=== PATIENT | male | born 1945 | race Caucasian/White ===

== ENCOUNTER 2016-11-07 09:06 | Emergency (ER) | payer MEDICARE, OTHER, BC ==
[~2016-11-07] VITALS: Ht 182.9 cm; Wt 93.2 kg
[2016-11-07 09:09] VITALS: TEMP 97.7
[2016-11-07] MEDS ORDERED: ALLEGRA 60MG TA60 MG PO (10:04)
[2016-11-07] MEDS ORDERED: VITAMIN D 400400 IU PO (10:22)
[2016-11-07] MEDS ORDERED: B COMPLEX #11 TA1 PO (10:23)
[2016-11-07] MEDS ORDERED: RT SPIRIVA18 MCG IH (10:23)
[2016-11-07] MEDS ORDERED: PRESERVISIONLUT (10:24)
[2016-11-07 11:14] LABS: ADJUSTED CALCIUM 9.6 mg/dL (8.4-10.2); ALBUMIN 3.5 gm/dL (3.5-5.0); BILIRUBIN,TOTAL 0.6 mg/dL (0.0-1.0); CALCIUM 9.2 mg/dL (8.4-10.2); POTASSIUM 4.6 mmol/L (3.4-5.0); TOTAL PROTEIN 6.3 gm/dL (6.4-8.2)
[2016-11-07 11:18] LABS: BASO # 0.1 (0.0-0.2); BASO % 1.3 % (0.0-2.0); EOS # 0.4 (0.0-0.7); GRAN # 5.5 (1.4-6.5); GRAN % 63.8 % (42.2-75.2); HEMATOCRIT 39.9 % (42.0-52.0); HEMOGLOBIN 13.3 g/dl (13.5-18.0); LYMPH % 23.2 % (20.0-51.0); MEAN CELL VOLUME 91 fl (80.0-100.0); MEAN CORPUSCULAR HEMOGLOBIN 30 pg (27.0-31.0); MEAN CORPUSCULAR HGB CONC 33 g/dl (33.0-37.0); MEAN PLATELET VOLUME 9.9 fl (7.4-10.4); MONO # 0.6 (0.1-0.6); MONO % 6.5 % (1.7-9.3); PLATELET COUNT 295 K/mm3 (130-400); RED BLOOD COUNT 4.38 M/mm3 (4.20-5.60); REDCELL DISTRIBUTION WIDTH-CV 14.5 % (11.5-14.5); WHITE BLOOD COUNT 8.6 K/mm3 (4.8-10.8)
[2016-11-07 11:44] LABS: PH 7 (5-8); SQUAMOUS EPITHELIAL None Seen /hpf; URINE APPEARANCE Hazy; URINE BACTERIA Rare /hpf; URINE BILIRUBIN Negative (NEGATIVE); URINE BLOOD Negative (NEGATIVE); URINE COLOR Yellow; URINE GLUCOSE Negative (NEGATIVE); URINE KETONE Negative (NEGATIVE); URINE UROBILINOGEN Negative (NEGATIVE); URINE WBC 0-2 /hpf
[2016-11-07 12:34] VITALS: BP 107/60; PULSE 59
== END 2016-11-07 12:57 | disposition short-term general hospital (02) ==
LOC: COL.ER 09:06
PROVIDERS: Family Medicine
DX: T14.8 Other injury of unspecified body region (principal); S09.90XA Unspecified injury of head, initial encounter; S29.9XXA Unspecified injury of thorax, initial encounter; S19.9XXA Unspecified injury of neck, initial encounter; J44.9 Chronic obstructive pulmonary disease, unspecified; Z87.891 Personal history of nicotine dependence; W18.09XA Striking against other object with subsequent fall, initial encounter; R40.2362 Coma scale, best motor response, obeys commands, at arrival to emergency department; R40.2142 Coma scale, eyes open, spontaneous, at arrival to emergency department; R40.2252 Coma scale, best verbal response, oriented, at arrival to emergency department
CPT/HCPCS: J2930; J7030; J7060; Q9967

== ENCOUNTER 2017-08-05 13:15 | Outpatient (RCR) | payer MEDICARE, OTHER, BC ==
[~2017-08-05 13:15] MED LIST: ALLEGRA 60MG TA60 MG PO; B COMPLEX #11 TA1 PO; PRESERVISIONLUT; RT SPIRIVA18 MCG IH; VITAMIN D 400400 IU PO
== END 2017-08-09 | disposition home or self-care (01) ==
LOC: WSOT
DX: S14.106D Unspecified injury at C6 level of cervical spinal cord, subsequent encounter (principal); G82.50 Quadriplegia, unspecified; W01.0XXD Fall on same level from slipping, tripping and stumbling without subsequent striking against object, subsequent encounter; Y92.007 Garden or yard of unspecified non-institutional (private) residence as the place of occurrence of the external cause
CPT/HCPCS: G8978-GP; G8979-GP; G8987-GO; G8988-GO

== ENCOUNTER 2017-08-08 12:30 | Outpatient (RCR) | payer OTHER, MEDICARE, BC | END 2017-08-09 | LOC: WSPT | DX: G82.50 Quadriplegia, unspecified (principal) | CPT/HCPCS: G8978-GP; G8979-GP ==

== ENCOUNTER → 2017-09-06 | Outpatient (CLI) | payer MEDICARE, OTHER, BC ==
[~2017-09-06] MED LIST changes: +AFLIBERCEPT IJ; +ALBUTEROL S0.4 MG/ML PO; +ASPIRIN E.C. 8181 MG PO; +DOXYCYCLINE 10100 MG PO; +DULCOLAX S10 MG/SUPP RC; +FLONASE SENSIM9.9 ML NS; +LEXAPRO 10MG10 MG PO; +LIORESAL 1010 MG/TAB PO; +LIPITOR 40MG TA40 MG PO; +MUCUS RELIEF400 M1 PO; +MULTI VITAMINS1 TAB PO; +NEURONTIN300 MG/CAP PO; +NORCO 325 MG-51 TAB PO; +NYAMYC100000 U/G TP; +PLAVIX 75MG TAB75 MG PO; +SPIRIVA RE2.5 MCG/Ac IH; +TYLENOL 325MG325 MG PO; +VITAMIN C500 MG PO; +VITAMIN D31000 I1 PO; +ZYRTEC 10MG10 MG PO; +[UNRECOGNIZED DRUG - OTHER] SL
== END ==
LOC: COL.VAS 12:15
DX: I34.0 Nonrheumatic mitral (valve) insufficiency (principal); I35.0 Nonrheumatic aortic (valve) stenosis

== ENCOUNTER → 2017-09-08 | Outpatient (CLI) | payer MEDICARE, OTHER, BC | LOC: COL.PUL 09-07 11:20 | DX: J44.9 Chronic obstructive pulmonary disease, unspecified (principal); R93.8 Abnormal findings on diagnostic imaging of other specified body structures ==

== ENCOUNTER → 2017-09-13 | Outpatient (CLI) | payer MEDICARE, OTHER, BC | LOC: COL.PUL 08:00 | DX: J44.9 Chronic obstructive pulmonary disease, unspecified (principal) ==

== ENCOUNTER 2017-11-07 13:00 | Outpatient (RCR) | payer OTHER, MEDICARE, BC ==
[2017-11-09] MEDS ORDERED: RT SPIRIVA18 MCG IH (12:33)
== END 2017-11-08 ==
LOC: WSOT
DX: G82.50 Quadriplegia, unspecified (principal)
CPT/HCPCS: G8987-GO; G8988-GO

== ENCOUNTER 2017-11-07 14:00 | Outpatient (RCR) | payer OTHER, MEDICARE, BC ==
[2017-11-09] MEDS ORDERED: RT SPIRIVA18 MCG IH (12:33)
== END 2017-11-08 ==
LOC: WSPT
DX: G82.50 Quadriplegia, unspecified (principal); S14.101D Unspecified injury at C1 level of cervical spinal cord, subsequent encounter
CPT/HCPCS: G8978-GP; G8979-GP

== ENCOUNTER → 2017-11-14 | Outpatient (CLI) | payer MEDICARE, BC ==
[2017-11-14 10:54] VITALS: BP 105/60; PULSE 51
[2017-11-14 12:09] VITALS: BP 110/58; PULSE 77
[2017-11-14 12:11] VITALS: BP 108/56; PULSE 67
[2017-11-14 12:12] VITALS: BP 108/63; PULSE 60
[2017-11-14 12:13] VITALS: BP 123/70; PULSE 62
== END ==
LOC: COL.CARD 11-08 07:45
DX: I21.4 Non-ST elevation (NSTEMI) myocardial infarction (principal)
CPT/HCPCS: A9502; J2785

== ENCOUNTER → 2017-12-22 | Outpatient (CLI) | payer MEDICARE, BC ==
[~2017-12-22] VITALS: Ht 182.9 cm; Wt 99.1 kg
[~2017-12-22] MED LIST changes: +ALBUTEROL0.83 MG/ML IH; +LIPITOR 80MG80 MG PO; +MUCINEX 60600 MG/TA1 PO; +PREDNISONE10 MG PO; +PROAIR HFA0.09 MG/AC IH; +RT ADVAIR HFA 412 GM IH; +ZANAFLEX 4MG TAB4 MG PO; +ZANAFLEX2 MG PO; +ZITHROMAX 250M250 MG PO
[2017-12-22 13:43] VITALS: BP 113/65; PULSE 43
[2017-12-22 15:45] VITALS: BP 127/69; PULSE 50
== END ==
LOC: COL.RAD 13:20
DX: K11.8 Other diseases of salivary glands (principal); Z89.029 Acquired absence of unspecified finger(s); Z96.698 Presence of other orthopedic joint implants

== ENCOUNTER 2018-01-10 12:15 | Emergency (ER) | payer MEDICARE, OTHER, BC ==
[~2018-01-10] VITALS: Ht 182.9 cm; Wt 100.0 kg
[2018-01-10 12:19] VITALS: TEMP 98.5
[2018-01-10 12:54] LABS: COLLECTION METHOD CLEAN CATCH
[2018-01-10 12:59] LABS: BASO # 0.1 (0.0-0.2); BASO % 0.5 % (0.0-2.0); EOS # 0.2 (0.0-0.7); EOS % 1.6 % (0-4.0); GRAN # 7.9 (1.4-6.5); GRAN % 71.1 % (42.2-75.2); HEMATOCRIT 42.7 % (42.0-52.0); HEMOGLOBIN 14.3 g/dl (13.5-18.0); LYMPH # 2.2 (1.2-3.4); LYMPH % 19.9 % (20.0-51.0); MEAN CELL VOLUME 91 fl (80.0-100.0); MEAN CORPUSCULAR HEMOGLOBIN 30 pg (27.0-31.0); MEAN CORPUSCULAR HGB CONC 34 g/dl (33.0-37.0); MEAN PLATELET VOLUME 8.1 fl (7.4-10.4); MONO # 0.7 (0.1-0.6); MONO % 6.5 % (1.7-9.3); PLATELET COUNT 240 K/mm3 (130-400); RED BLOOD COUNT 4.71 M/mm3 (4.20-5.60); REDCELL DISTRIBUTION WIDTH-CV 13.8 % (11.5-14.5)
[2018-01-10 13:03] LABS: BUDDING YEAST Present /hpf; MUCOUS Present /lpf; PH 7 (5-8); SQUAMOUS EPITHELIAL 0-2 /hpf; URINE APPEARANCE Hazy; URINE BACTERIA None Seen /hpf; URINE BILIRUBIN Negative (NEGATIVE); URINE BLOOD Negative (NEGATIVE); URINE COLOR Yellow; URINE GLUCOSE Negative (NEGATIVE); URINE KETONE Negative (NEGATIVE); URINE LEUKOCYTE ESTERASE Negative (NEGATIVE); URINE NITRATE Negative (NEGATIVE); URINE PROTEIN(semi-quant) Negative (NEGATIVE); URINE RBC 0-2 /hpf; URINE UROBILINOGEN Negative (NEGATIVE)
[2018-01-10] MEDS ORDERED: PRESERVISION1 SGL PO (13:03)
[2018-01-10] MEDS ORDERED: CRANBERRY500 M3 PO (13:06)
[2018-01-10 13:13] LABS: ALBUMIN 3.7 gm/dL (3.5-5.0); BILIRUBIN,TOTAL 0.3 mg/dL (0.0-1.0); CALCIUM 9.3 mg/dL (8.4-10.2); CREATININE, serum 0.63 mg/dL (0.66-1.25); POTASSIUM 4.4 mmol/L (3.4-5.0); TOTAL PROTEIN 7.2 gm/dL (6.4-8.2)
[2018-01-10 14:21] VITALS: BP 129/68; PULSE 54
== END 2018-01-10 14:22 | disposition home or self-care (01) ==
LOC: COL.ER 12:15
PROVIDERS: Emergency Medicine
DX: R53.81 Other malaise (principal); G82.50 Quadriplegia, unspecified; Z79.82 Long term (current) use of aspirin; Z87.828 Personal history of other (healed) physical injury and trauma
CPT/HCPCS: J7030

== ENCOUNTER 2018-01-13 13:15 | Outpatient (RCR) | payer MEDICARE, OTHER, BC ==
[~2018-01-13 13:15] MED LIST changes: +CRANBERRY500 M3 PO; +PRESERVISION1 SGL PO
== END 2018-02-26 | disposition home or self-care (01) ==
LOC: WSOT
DX: G82.54 Quadriplegia, C5-C7 incomplete (principal)
CPT/HCPCS: G8985-GO; G8987-GO; G8988-GO

== ENCOUNTER 2018-02-08 14:00 | Outpatient (RCR) | payer MEDICARE, OTHER, BC | END 2018-02-09 | disposition home or self-care (01) | LOC: WSPT | DX: S14.101D Unspecified injury at C1 level of cervical spinal cord, subsequent encounter (principal); G82.50 Quadriplegia, unspecified | CPT/HCPCS: G8978-GP; G8979-GP ==

== ENCOUNTER 2018-03-14 08:35 | Day surgery (SDC) | payer MEDICARE, OTHER, BC ==
[~2018-03-14] VITALS: Ht 182.9 cm; Wt 99.1 kg
[2018-03-14 09:36] VITALS: BP 99/49; PULSE 47; TEMP 97.6
== END 2018-03-14 10:39 | disposition home or self-care (01) ==
LOC: SDCO 08:35
DX: N21.0 Calculus in bladder (principal); N31.9 Neuromuscular dysfunction of bladder, unspecified; J43.9 Emphysema, unspecified; Z79.82 Long term (current) use of aspirin; Z87.891 Personal history of nicotine dependence; Z80.3 Family history of malignant neoplasm of breast; Z83.3 Family history of diabetes mellitus; Z82.49 Family history of ischemic heart disease and other diseases of the circulatory system; Z80.42 Family history of malignant neoplasm of prostate; Z80.0 Family history of malignant neoplasm of digestive organs

== ENCOUNTER 2018-05-10 13:45 | Outpatient (RCR) | payer MEDICARE, OTHER, BC | END 2018-05-11 | disposition home or self-care (01) | LOC: WSPT | DX: S14.101D Unspecified injury at C1 level of cervical spinal cord, subsequent encounter (principal); G82.50 Quadriplegia, unspecified | CPT/HCPCS: G8978-GP; G8979-GP ==

== ENCOUNTER 2018-05-16 14:52 | Day surgery (SDC) | payer MEDICARE, OTHER, BC ==
[~2018-05-16] VITALS: Ht 182.9 cm; Wt 100.0 kg
[2018-05-16 15:40] VITALS: BP 115/54; PULSE 48; TEMP 98
[2018-05-16] MEDS ORDERED: MUCINEX 60600 MG/TA1 PO (15:51)
[2018-05-16 18:54] VITALS: BP 154/67; PULSE 74; TEMP 97.7
[2018-05-16 19:24] VITALS: BP 147/77; PULSE 73
[2018-05-16 19:54] VITALS: BP 130/51; PULSE 84; TEMP 97.9
== END 2018-05-16 20:30 | disposition home or self-care (01) ==
LOC: SDCO 14:52 → MEDICAL 19:00 → SDCO 20:30
DX: N21.0 Calculus in bladder (principal); N39.0 Urinary tract infection, site not specified; Z79.02 Long term (current) use of antithrombotics/antiplatelets; K21.9 Gastro-esophageal reflux disease without esophagitis; F32.9 Major depressive disorder, single episode, unspecified; G82.54 Quadriplegia, C5-C7 incomplete; M17.12 Unilateral primary osteoarthritis, left knee; Z87.891 Personal history of nicotine dependence; Z80.0 Family history of malignant neoplasm of digestive organs; Z80.42 Family history of malignant neoplasm of prostate; Z79.899 Other long term (current) drug therapy; C34.91 Malignant neoplasm of unspecified part of right bronchus or lung; H35.30 Unspecified macular degeneration; J43.9 Emphysema, unspecified; N31.9 Neuromuscular dysfunction of bladder, unspecified; Z87.440 Personal history of urinary (tract) infections; D49.0 Neoplasm of unspecified behavior of digestive system; Z79.82 Long term (current) use of aspirin
CPT/HCPCS: OP; C1769; J0690; J1100; J2405; J2704; J7120

== ENCOUNTER → 2018-06-07 | Outpatient (RCR) | payer MEDICARE, OTHER, BC | END | disposition home or self-care (01) | LOC: WSOT | DX: G82.50 Quadriplegia, unspecified (principal); S14.101D Unspecified injury at C1 level of cervical spinal cord, subsequent encounter | CPT/HCPCS: G8987-GO; G8988-GO ==

== ENCOUNTER 2018-06-16 02:06 | Inpatient (IN) | payer MEDICARE, OTHER, BC ==
[~2018-06-16] VITALS: Ht 182.9 cm; Wt 102.4 kg
[2018-06-16 02:36] LABS: COLLECTION METHOD CATHETER
[2018-06-16 02:41] LABS: MUCOUS Present /lpf; PH 5 (5-8); SQUAMOUS EPITHELIAL None Seen /hpf; URINE APPEARANCE Clear; URINE BACTERIA None Seen /hpf; URINE BILIRUBIN Negative (NEGATIVE); URINE BLOOD Negative (NEGATIVE); URINE COLOR Straw; URINE GLUCOSE Negative (NEGATIVE); URINE KETONE Negative (NEGATIVE); URINE LEUKOCYTE ESTERASE Negative (NEGATIVE); URINE NITRATE Negative (NEGATIVE); URINE PROTEIN(semi-quant) Negative (NEGATIVE); URINE RBC None Seen /hpf; URINE UROBILINOGEN Negative (NEGATIVE)
[2018-06-16 02:50] LABS: BASO # 0.1 (0.0-0.2); BASO % 0.6 % (0.0-2.0); EOS # 0.3 (0.0-0.7); EOS % 1.8 % (0-4.0); GRAN # 11.1 (1.4-6.5); GRAN % 74.3 % (42.2-75.2); HEMOGLOBIN 13.2 g/dl (13.5-18.0); LYMPH # 2.4 (1.2-3.4); LYMPH % 16.1 % (20.0-51.0); MEAN CELL VOLUME 90 fl (80.0-100.0); MEAN CORPUSCULAR HEMOGLOBIN 30 pg (27.0-31.0); MEAN CORPUSCULAR HGB CONC 33 g/dl (33.0-37.0); MEAN PLATELET VOLUME 8.5 fl (7.4-10.4); MONO % 6.7 % (1.7-9.3); PLATELET COUNT 269 K/mm3 (130-400); RED BLOOD COUNT 4.44 M/mm3 (4.20-5.60)
[2018-06-16 02:56] LABS: INR 1.1 (0.8-3.0); PROTHROMBIN TIME 12.4 SECONDS (9.7-12.8)
[2018-06-16] MEDS ORDERED: RT ADVAIR HFA 2312 G IH (02:56)
[2018-06-16] MEDS ORDERED: DULCOLAX S10 MG/SUPP RC (02:58)
[2018-06-16 02:59] LABS: PARTIAL THROMBOPLASTIN TIME 29.6 SECONDS (26.0-37.0)
[2018-06-16 03:01] LABS: ALBUMIN 3.8 gm/dL (3.5-5.0); BILIRUBIN,TOTAL 0.4 mg/dL (0.0-1.0); CALCIUM 9.2 mg/dL (8.4-10.2); CREATININE, serum 0.6 mg/dL (0.66-1.25); POTASSIUM 4.4 mmol/L (3.4-5.0); TOTAL PROTEIN 6.8 gm/dL (6.4-8.2)
[2018-06-16] MEDS ORDERED: MUCINEX 60600 MG/TA1 PO (03:02)
[2018-06-16 03:14] LABS: TROPONIN-I 0.013 ng/mL (0.000-0.034)
[2018-06-16 09:36] VITALS: BP 104/59; PULSE 97; TEMP 97.9
[2018-06-16 11:52] VITALS: BP 107/56; PULSE 83; TEMP 97.9
[2018-06-16 15:26] VITALS: BP 108/52; PULSE 89; TEMP 96.4
[2018-06-16 19:08] VITALS: BP 116/54; PULSE 72; TEMP 98.5
[2018-06-16 23:58] VITALS: BP 134/63; PULSE 89; TEMP 97.9
[2018-06-17 04:01] VITALS: BP 125/56; PULSE 77; TEMP 97.8
[2018-06-17 06:08] LABS: BASO % 0.1 % (0.0-2.0); GRAN # 11.9 (1.4-6.5); GRAN % 89.7 % (42.2-75.2); HEMATOCRIT 38.1 % (42.0-52.0); HEMOGLOBIN 12.4 g/dl (13.5-18.0); LYMPH # 0.9 (1.2-3.4); LYMPH % 6.5 % (20.0-51.0); MEAN CELL VOLUME 91 fl (80.0-100.0); MEAN CORPUSCULAR HEMOGLOBIN 30 pg (27.0-31.0); MEAN CORPUSCULAR HGB CONC 33 g/dl (33.0-37.0); MEAN PLATELET VOLUME 8.7 fl (7.4-10.4); MONO # 0.4 (0.1-0.6); MONO % 3.2 % (1.7-9.3); PLATELET COUNT 265 K/mm3 (130-400); RED BLOOD COUNT 4.18 M/mm3 (4.20-5.60); REDCELL DISTRIBUTION WIDTH-CV 13.2 % (11.5-14.5)
[2018-06-17 06:26] LABS: CALCIUM 8.8 mg/dL (8.4-10.2); CREATININE, serum 0.53 mg/dL (0.66-1.25); POTASSIUM 4.4 mmol/L (3.4-5.0)
[2018-06-17 08:01] VITALS: BP 138/71; PULSE 76; TEMP 97.5
[2018-06-17 11:31] VITALS: BP 108/56; PULSE 66; TEMP 97.5
[2018-06-17 15:47] VITALS: BP 116/59; PULSE 60; TEMP 97.5
[2018-06-17 19:44] VITALS: BP 135/63; PULSE 74; TEMP 97.9
[2018-06-18 00:24] VITALS: BP 138/52; PULSE 80; TEMP 97.3
[2018-06-18 04:25] VITALS: BP 146/64; PULSE 78
[2018-06-18 07:38] LABS: CALCIUM 8.9 mg/dL (8.4-10.2); CREATININE, serum 0.49 mg/dL (0.66-1.25); POTASSIUM 4.5 mmol/L (3.4-5.0)
[2018-06-18 08:27] LABS: HEMATOCRIT 38.6 % (42.0-52.0); HEMOGLOBIN 12.7 g/dl (13.5-18.0); MEAN CELL VOLUME 91 fl (80.0-100.0); MEAN CORPUSCULAR HEMOGLOBIN 30 pg (27.0-31.0); MEAN CORPUSCULAR HGB CONC 33 g/dl (33.0-37.0); PLATELET COUNT 242 K/mm3 (130-400); RED BLOOD COUNT 4.24 M/mm3 (4.20-5.60); REDCELL DISTRIBUTION WIDTH-CV 13.2 % (11.5-14.5)
[2018-06-18 08:50] LABS: BAND 4 % (0-10); LYMPHOCYTE 3 % (20.0-51.0); NEUTROPHILS 92 % (42.0-75.2); PLATELET ESTIMATE NORMAL (NORMAL)
[2018-06-18 11:03] VITALS: BP 143/62; PULSE 87; TEMP 98.3
[2018-06-18] MEDS ORDERED: OMNICEF 300MG300 MG PO (13:26)
[2018-06-18] MEDS ORDERED: ZITHROMAX 250M250 MG PO ×2 (13:27→13:35)
[2018-06-18] MEDS ORDERED: PREDNISONE20 MG PO (13:28)
[2018-06-21 17:41] LABS: MYCOPLASMA IGM ANTIBODIES 0.3 (0.00-0.90)
== END 2018-06-18 15:30 | disposition home or self-care (01) | DRG 193 ==
LOC: COL.ER 02:06 → MEDICAL 05:46
PROVIDERS: Emergency Medicine; Hospitalist; Physician Assistant
DX: J18.9 Pneumonia, unspecified organism (principal); G82.50 Quadriplegia, unspecified; I21.A1 Myocardial infarction type 2; J44.1 Chronic obstructive pulmonary disease with (acute) exacerbation; K59.2 Neurogenic bowel, not elsewhere classified; J44.0 Chronic obstructive pulmonary disease with (acute) lower respiratory infection; N31.9 Neuromuscular dysfunction of bladder, unspecified; G62.9 Polyneuropathy, unspecified; S14.109S Unspecified injury at unspecified level of cervical spinal cord, sequela; R74.8 Abnormal levels of other serum enzymes; R07.89 Other chest pain; G47.30 Sleep apnea, unspecified; R91.1 Solitary pulmonary nodule; F32.9 Major depressive disorder, single episode, unspecified; R53.81 Other malaise; I25.2 Old myocardial infarction; H35.30 Unspecified macular degeneration; Z87.891 Personal history of nicotine dependence; Z66 Do not resuscitate
CPT/HCPCS: 99223-AI; 99233-AI; 99239; J0456; J0696; J1650; J2930; J7030; J7040; J7050; Q9967

== ENCOUNTER 2018-08-09 14:00 | Outpatient (RCR) | payer MEDICARE, OTHER, BC ==
[~2018-08-09 14:00] MED LIST changes: +OMNICEF 300MG300 MG PO; +PREDNISONE20 MG PO; +RT ADVAIR HFA 2312 G IH
== END 2018-08-10 | disposition home or self-care (01) ==
LOC: WSPT
DX: S14.101D Unspecified injury at C1 level of cervical spinal cord, subsequent encounter (principal); G82.50 Quadriplegia, unspecified
CPT/HCPCS: G8978-GP; G8979-GP

== ENCOUNTER → 2018-09-06 | Outpatient (CLI) | payer MEDICARE, OTHER, BC | LOC: COL.RAD 11:00 | DX: M47.816 Spondylosis without myelopathy or radiculopathy, lumbar region (principal); R19.7 Diarrhea, unspecified ==

== ENCOUNTER 2018-09-11 12:45 | Outpatient (RCR) | payer MEDICARE, OTHER, BC ==
[2018-09-27] MEDS ORDERED: ZANAFLEX CAPSULE4 MG PO (22:08)
[2018-09-27] MEDS ORDERED: PROAIR HFA0.09 MG/AC IH (22:22)
[2018-09-27] MEDS ORDERED: BUSPAR5 MG (22:22)
[2018-09-27] MEDS ORDERED: TYLENOL 500MG500 MG PO (22:23)
[2018-09-27] MEDS ORDERED: FLONASEALLERGY NS (22:24)
[2018-09-28] MEDS ORDERED: MUCUS RELIEF400 M1 PO (03:46)
[2018-09-28] MEDS ORDERED: PROBIOTIC FORMU1 CAP PO (03:48)
[2018-09-28] MEDS ORDERED: MULTIPLE VITAMI1 CAP PO (03:48)
[2018-09-28] MEDS ORDERED: LIORESAL 1010 MG/TAB PO (03:49)
[2018-09-28] MEDS ORDERED: WELLBUTRIN SR150 M1 PO (12:54)
[2018-10-01] MEDS ORDERED: PREDNISONE20 MG PO (15:00)
[2018-10-01] MEDS ORDERED: AMOXICILLIN 8751 TAB PO (15:00)
== END 2018-10-22 | disposition still patient (30) ==
LOC: WSOT
DX: G82.54 Quadriplegia, C5-C7 incomplete (principal)
CPT/HCPCS: G8987-GO; G8988-GO

== ENCOUNTER 2018-09-15 13:45 | Outpatient (RCR) | payer MEDICARE, BC ==
[2018-09-27] MEDS ORDERED: ZANAFLEX CAPSULE4 MG PO (22:08)
[2018-09-27] MEDS ORDERED: BUSPAR5 MG (22:22)
[2018-09-27] MEDS ORDERED: PROAIR HFA0.09 MG/AC IH (22:22)
[2018-09-27] MEDS ORDERED: TYLENOL 500MG500 MG PO (22:23)
[2018-09-27] MEDS ORDERED: FLONASEALLERGY NS (22:24)
[2018-09-28] MEDS ORDERED: MUCUS RELIEF400 M1 PO (03:46)
[2018-09-28] MEDS ORDERED: MULTIPLE VITAMI1 CAP PO (03:48)
[2018-09-28] MEDS ORDERED: PROBIOTIC FORMU1 CAP PO (03:48)
[2018-09-28] MEDS ORDERED: LIORESAL 1010 MG/TAB PO (03:49)
[2018-09-28] MEDS ORDERED: WELLBUTRIN SR150 M1 PO (12:54)
[2018-10-01] MEDS ORDERED: AMOXICILLIN 8751 TAB PO (15:00)
[2018-10-01] MEDS ORDERED: PREDNISONE20 MG PO (15:00)
[2018-10-26] MEDS ORDERED: PREDNISONE10 MG PO (16:28)
== END 2018-11-09 | disposition home or self-care (01) ==
LOC: WSPT
DX: S14.101D Unspecified injury at C1 level of cervical spinal cord, subsequent encounter (principal); G82.50 Quadriplegia, unspecified

== ENCOUNTER 2018-10-26 12:54 | Emergency (ER) | payer OTHER ==
[~2018-10-26] VITALS: Ht 182.9 cm; Wt 98.6 kg
[~2018-10-26 12:54] MED LIST changes: +AMOXICILLIN 8751 TAB PO; +BUSPAR5 MG; +FLONASEALLERGY NS; +MULTIPLE VITAMI1 CAP PO; +PROBIOTIC FORMU1 CAP PO; +TYLENOL 500MG500 MG PO; +WELLBUTRIN SR150 M1 PO; +ZANAFLEX CAPSULE4 MG PO
[2018-10-26 14:30] LABS: COLLECTION METHOD CATHETER
[2018-10-26 14:35] LABS: PH 7 (5-8); SQUAMOUS EPITHELIAL None Seen /hpf; URINE APPEARANCE Clear; URINE BACTERIA None Seen /hpf; URINE BILIRUBIN Negative (NEGATIVE); URINE BLOOD Negative (NEGATIVE); URINE COLOR Yellow; URINE GLUCOSE Negative (NEGATIVE); URINE KETONE Negative (NEGATIVE); URINE LEUKOCYTE ESTERASE Negative (NEGATIVE); URINE NITRATE Negative (NEGATIVE); URINE PROTEIN(semi-quant) Negative (NEGATIVE); URINE RBC 0-2 /hpf; URINE UROBILINOGEN Negative (NEGATIVE)
[2018-10-26 14:56] LABS: BASO # 0.1 (0.0-0.2); BASO % 0.8 % (0.0-2.0); EOS # 0.1 (0.0-0.7); EOS % 1.6 % (0-4.0); GRAN # 6.2 (1.4-6.5); HEMATOCRIT 40.3 % (42.0-52.0); HEMOGLOBIN 12.9 g/dl (13.5-18.0); LYMPH # 1.6 (1.2-3.4); LYMPH % 18.5 % (20.0-51.0); MEAN CELL VOLUME 91 fl (80.0-100.0); MEAN CORPUSCULAR HEMOGLOBIN 29 pg (27.0-31.0); MEAN CORPUSCULAR HGB CONC 32 g/dl (33.0-37.0); MEAN PLATELET VOLUME 8.9 fl (7.4-10.4); MONO # 0.6 (0.1-0.6); MONO % 6.9 % (1.7-9.3); PLATELET COUNT 242 K/mm3 (130-400); RED BLOOD COUNT 4.42 M/mm3 (4.20-5.60); REDCELL DISTRIBUTION WIDTH-CV 13.9 % (11.5-14.5)
[2018-10-26 15:08] LABS: ALBUMIN 3.6 gm/dL (3.5-5.0); BILIRUBIN,TOTAL 0.4 mg/dL (0.0-1.0); CALCIUM 9.2 mg/dL (8.4-10.2); CREATININE, serum 0.67 (0.66-1.25); POTASSIUM 4.4 mmol/L (3.4-5.0); TOTAL PROTEIN 6.8 gm/dL (6.4-8.2)
[2018-10-26 15:29] VITALS: TEMP 97.5
[2018-10-26] MEDS ORDERED: PREDNISONE10 MG PO (16:28)
[2018-10-26 16:35] VITALS: BP 118/71; PULSE 72
== END 2018-10-26 16:35 | disposition home or self-care (01) ==
LOC: COL.ER 12:54
PROVIDERS: Family Medicine
DX: J44.1 Chronic obstructive pulmonary disease with (acute) exacerbation (principal); J20.9 Acute bronchitis, unspecified; J44.0 Chronic obstructive pulmonary disease with (acute) lower respiratory infection; Z86.73 Personal history of transient ischemic attack (TIA), and cerebral infarction without residual deficits; Z79.51 Long term (current) use of inhaled steroids
CPT/HCPCS: J7512

== ENCOUNTER 2018-11-02 14:13 | Outpatient (RCR) | payer MEDICARE, OTHER, BC | END 2019-01-31 | disposition still patient (30) | LOC: WSST | DX: J69.0 Pneumonitis due to inhalation of food and vomit (principal) ==

== ENCOUNTER → 2018-11-07 | Outpatient (RCR) | payer OTHER | END | disposition home or self-care (01) | LOC: WSOT | DX: G82.52 Quadriplegia, C1-C4 incomplete (principal) ==

== ENCOUNTER → 2018-11-14 | Outpatient (RCR) | payer OTHER | END | disposition home or self-care (01) | LOC: WSPT | DX: S14.106D Unspecified injury at C6 level of cervical spinal cord, subsequent encounter (principal); G82.50 Quadriplegia, unspecified; W18.09XD Striking against other object with subsequent fall, subsequent encounter ==

== ENCOUNTER → 2018-11-16 | Outpatient (CLI) | payer MEDICARE, OTHER, BC | LOC: COL.RAD 15:02 | DX: J69.0 Pneumonitis due to inhalation of food and vomit (principal) ==

== ENCOUNTER 2019-02-12 12:45 | Outpatient (RCR) | payer OTHER ==
[2019-02-18] MEDS ORDERED: PROAIR HFA0.09 MG/AC IH (05:42)
[2019-02-18] MEDS ORDERED: ZANAFLEX2 MG PO ×2 (05:45→05:46)
[2019-02-19] MEDS ORDERED: WELLBUTRIN XL300 M1 PO (10:23)
== END 2019-02-19 | disposition home or self-care (01) ==
LOC: WSOT
DX: G82.52 Quadriplegia, C1-C4 incomplete (principal)

== ENCOUNTER 2019-02-12 13:30 | Outpatient (RCR) | payer OTHER | END 2019-02-15 | disposition home or self-care (01) | LOC: WSPT | DX: G82.52 Quadriplegia, C1-C4 incomplete (principal) ==

== ENCOUNTER 2019-02-18 00:41 | Inpatient (IN) | payer MEDICARE, BC ==
[2019-02-18] VITALS (358 sets, daily range): BP systolic 10–108; BP diastolic 35–57; PULSE 82–109; TEMP 98.3–98.9; O2SAT 86–97
[~2019-02-18] VITALS: Ht 182.9 cm; Wt 103.3 kg
[2019-02-18 01:06] LABS: BASO # 0.1 (0.0-0.2); BASO % 0.4 % (0.0-2.0); EOS # 0.1 (0.0-0.7); EOS % 0.6 % (0-4.0); GRAN # 15.3 (1.4-6.5); GRAN % 84.2 % (42.2-75.2); HEMATOCRIT 44.9 % (42.0-52.0); HEMOGLOBIN 14.5 g/dl (13.5-18.0); LYMPH # 1.5 (1.2-3.4); LYMPH % 8.3 % (20.0-51.0); MEAN CELL VOLUME 90 fl (80.0-100.0); MEAN CORPUSCULAR HEMOGLOBIN 29 pg (27.0-31.0); MEAN CORPUSCULAR HGB CONC 32 g/dl (33.0-37.0); MEAN PLATELET VOLUME 8.7 fl (7.4-10.4); MONO % 5.4 % (1.7-9.3); PLATELET COUNT 311 K/mm3 (130-400); RED BLOOD COUNT 4.99 M/mm3 (4.20-5.60); REDCELL DISTRIBUTION WIDTH-CV 13.9 % (11.5-14.5)
[2019-02-18 01:10] LABS: PROTHROMBIN TIME 11.6 SECONDS (9.7-12.8)
[2019-02-18 01:14] LABS: ALANINE AMINOTRANSFERASE 17 U/L (21-72); ALBUMIN 4.3 gm/dL (3.5-5.0); ALKALINE PHOSPHATASE 87 U/L (50-136); ANION GAP 10 mmol/L (7-16); AST,SGOT 27 U/L (15-37); BILIRUBIN,TOTAL 0.4 mg/dL (0.0-1.0); BLOOD UREA NITROGEN 15 mg/dL (9-20); CALCIUM 9.7 mg/dL (8.4-10.2); CARBON DIOXIDE 28 mmol/L (22-30); CHLORIDE 98 mmol/L (98-107); GLUCOSE 134 mg/dL (74-106); POTASSIUM 4.7 mmol/L (3.4-5.0); SODIUM 136 mmol/L (137-145); TOTAL PROTEIN 7.7 gm/dL (6.4-8.2)
[2019-02-18 01:26] LABS: TROPONIN-I < 0.012 ng/mL (0.000-0.035)
[2019-02-18 01:46] LABS: COLLECTION METHOD CATHETER
[2019-02-18 01:52] LABS: MUCOUS Present /lpf; PH 5 (5-8); SQUAMOUS EPITHELIAL 0-2 /hpf; URINE APPEARANCE Clear; URINE BACTERIA None Seen /hpf; URINE BILIRUBIN Negative (NEGATIVE); URINE BLOOD Negative (NEGATIVE); URINE COLOR Yellow; URINE GLUCOSE Negative (NEGATIVE); URINE KETONE Negative (NEGATIVE); URINE LEUKOCYTE ESTERASE Negative (NEGATIVE); URINE NITRATE Negative (NEGATIVE); URINE PROTEIN(semi-quant) Negative (NEGATIVE); URINE UROBILINOGEN Negative (NEGATIVE)
--- NOTE | 2019-02-18 05:03 | NUR ---
Received telephone report from LISA Rios.
--- NOTE | 2019-02-18 05:12 | NUR ---
Arrived to the unit via stretcher; attached to all monitors. Patient alert, cooperative, and partially oriented. Some mild confusion noted with basic questions regarding date and time. No complaints of pain or shortness of breath at this time. Will continue to moniotr.
[2019-02-18] MEDS ORDERED: PROAIR HFA0.09 MG/AC IH (05:42)
[2019-02-18] MEDS ORDERED: ZANAFLEX2 MG PO ×2 (05:45→05:46)
[2019-02-18 06:58] LABS: ARTERIAL BLD GAS O2 SATURATION 93.7 % (92-100); ARTERIAL BLD GAS TCO2 CT 29.9; ARTERIAL BLOOD GAS BASE EXCESS 1.9 (-2-2); ARTERIAL BLOOD GAS HCO3 28.3 meq/L (22-26); ARTERIAL BLOOD GAS PCO2 51.6 mmHg (35-45); ARTERIAL BLOOD GAS PO2 75.3 mmHg (80-100); ARTERIAL BLOOD GAS pH 7.36 (7.35-7.45)
--- NOTE | 2019-02-18 07:45 | NUR ---
Report recieved from LISA Alvarado. Patient in bed in low and locked position, call light within reach, rails x3. MIVF infusing as ordered. Patient denies needs at this time. Care assumed.
--- NOTE | 2019-02-18 07:45 | NUR ---
Report given to LISA Escamilla. Patient care transfered.
--- NOTE | 2019-02-18 10:00 | NUR ---
Dr. Rashid rounds at this time. Orders as entered CPOE.
--- NOTE | 2019-02-18 10:40 | NUR ---
Dr. Moreno rounds at this time. Orders as entered CPOE.
[2019-02-18 15:49] LABS: ARTERIAL BLD GAS O2 SATURATION 86.8 % (92-100); ARTERIAL BLD GAS TCO2 CT 23.7; ARTERIAL BLOOD GAS BASE EXCESS -3.6 (-2-2); ARTERIAL BLOOD GAS HCO3 22.3 meq/L (22-26); ARTERIAL BLOOD GAS PCO2 43.9 mmHg (35-45); ARTERIAL BLOOD GAS PO2 57.1 mmHg (80-100); ARTERIAL BLOOD GAS pH 7.32 (7.35-7.45)
--- NOTE | 2019-02-18 16:05 | NUR ---
Foam tape used to create large handled silverware for patient for improved dexterity. Patient uses this to eat most of meal and requires assistance with drinks. Care ongoing.
--- NOTE | 2019-02-18 18:46 | NUR ---
PT IS NOT TOLERATING THE BIPAP VERY WELL, WHILE OXYGEN SAT STAYS IN THE LOW 90'S WITH THE REGULAR OXYGEN. CALLED DR. NOLAN FERNÁNDEZ TO REQUEST TO HAVE THIS PT TO USE THE AIRVO AND SEE IF THE PT CAN TOLERATE THIS BETTER AND TO KEEP HIS SAT UP. WILL CONTINUE TO MONITOR AND ASSESS PT NEEDED THROUGHOUT THE NIGHT
--- NOTE | 2019-02-18 19:25 | NUR ---
Bedside report received from LISA Escamilla
--- NOTE | 2019-02-18 20:00 | NUR ---
Patient asleep in bed at this time, but awakens to name and tactile stimulation. Patient is alert and partially oriented, some confusion in conversation. Assessment complete. Lungs are clear in the upper lobes with bilateral bases being diminished with fine crackles. HR and rhythm are regular with normal S1 and S2 heard. Bowel sounds are active x4. Patient has +2 edema to his lower extremities. He has no complaints of pain. Repositioned for comfort. No further needs at this time. Will continue to monitor. Call light within reach.
--- NOTE | 2019-02-18 22:40 | NUR ---
Patient has started to desaturate on the Airvo machine as he is breathing through his mouth rather than his nose when he sleeps. Notified RT Mitch
--- NOTE | 2019-02-18 22:44 | NUR ---
PT WAS BREATHING THROUGH HIS MOUTH TOO MUCH TO WHERE HIS 02 SAT WAS DROPPING IN THE MID 80'S SWITCHED PT BACK TO OM AND INCREASE LPM TO 15 AND TITRATED IT DOWN HIS SATURATION WENT UP. HE IS CURRENTLY AT 10 LPM WITH THE OM AND HE IS RAFA WELL WITH HIS O2 SAT AT 94%. WILL CONTINUE TO MONITOR AND ASSESS
[2019-02-19] VITALS (404 sets, daily range): BP systolic 102–140; BP diastolic 53–73; PULSE 75–97; TEMP 97–98.3; O2SAT 88–100
--- NOTE | 2019-02-19 | NUR ---
Patient asleep. Awakens to name. No complaints of pain or needs at this time. Repositioned for comfort. Will continue to monitor. Call light within reach.
--- NOTE | 2019-02-19 04:00 | NUR ---
Patient asleep. Awakens to name. No complaints of pain. Vitals are stable. No needs at this time. Will continue to monitor. Call light within reach.
[2019-02-19 05:14] LABS: MEAN CELL VOLUME 92 fl (80.0-100.0); MEAN CORPUSCULAR HGB CONC 32 g/dl (33.0-37.0); MEAN PLATELET VOLUME 8.8 fl (7.4-10.4); PLATELET COUNT 236 K/mm3 (130-400); RED BLOOD COUNT 3.81 M/mm3 (4.20-5.60); REDCELL DISTRIBUTION WIDTH-CV 14.3 % (11.5-14.5)
[2019-02-19 05:20] LABS: HEMATOCRIT 35.2 % (42.0-52.0); HEMOGLOBIN 11.3 g/dl (13.5-18.0); MEAN CORPUSCULAR HEMOGLOBIN 30 pg (27.0-31.0)
[2019-02-19 05:27] LABS: ALBUMIN 3.1 gm/dL (3.5-5.0); BILIRUBIN,TOTAL 0.3 mg/dL (0.0-1.0); CALCIUM 8.5 mg/dL (8.4-10.2); CREATININE, serum 0.67 (0.66-1.25); MAGNESIUM 2.2 mg/dL (1.6-2.3); POTASSIUM 4.5 mmol/L (3.4-5.0); TOTAL PROTEIN 5.9 gm/dL (6.4-8.2)
[2019-02-19 06:01] LABS: BAND 19 % (0-10); LYMPHOCYTE 6 % (20.0-51.0); NEUTROPHILS 74 % (42.0-75.2); PLATELET ESTIMATE NORMAL (NORMAL)
--- NOTE | 2019-02-19 07:30 | NUR ---
BEDSIDE REPORT RECEIVED FROM LISA RUANO. PATIENT AWAKE AND PARTICIPATES IN REPORT. HE IS REPOSITIONED AT THIS TIME. CALL LIGHT WITHIN REACH. CARE ASSUMED AT THIS TIME.
--- NOTE | 2019-02-19 08:01 | NUR ---
Bedside report given to LISA Melara
[2019-02-19 09:11] LABS: ARTERIAL BLD GAS O2 SATURATION 94.5 % (92-100); ARTERIAL BLD GAS TCO2 CT 25.7; ARTERIAL BLOOD GAS BASE EXCESS -1.5 (-2-2); ARTERIAL BLOOD GAS HCO3 24.3 meq/L (22-26); ARTERIAL BLOOD GAS PCO2 45.6 mmHg (35-45); ARTERIAL BLOOD GAS PO2 74.2 mmHg (80-100); ARTERIAL BLOOD GAS pH 7.35 (7.35-7.45)
[2019-02-19] MEDS ORDERED: WELLBUTRIN XL300 M1 PO (10:23)
--- NOTE | 2019-02-19 11:33 | NUR ---
Dr. Rashid here to see patient
--- NOTE | 2019-02-19 14:20 | NUR ---
ZOYA attended clinical rounds. The patient is to be transferred up to the medical floor today. The hospitalist discussed the need for a trilogy. ZOYA then followed up with the patient and patient's , Diana, to discuss discharge plan. The patient lives in [place] his . The patient is a quadriplegic and reports needing assistance with ADLS and that he has a wheelchair, motor wheelchair, a laya lift, ramps, shower chair, and nocturnal oxygen from [facility]. The patient's reports that she is able to assist the patient with ADLs and that the patient also has home health services through the [facility]. They provide therapy twice a week, a bath aide three times a week, and help with housekeeping. ZOYA attempted to contact the patient's social services technician at the [facility] (ph#[phone]) to confirm services. ZOYA left a voicemail. The patient's PCP at the [facility] is Tami Gama and his PCP in [place] is Dr. Stanley Henderson. The patient receives his medications at the [facility] and his reports no difficulties obtaining his meds. The patient's General DPOA is in EMR. ZOYA informed the patient's . The patient's reports that the patient does have a DPOA-HC completed and that she is his DPOA-HC. The patient's reports that she will bring a copy to the hospital. The patient plans to return home with his and resume home health services through the [facility] upon discharge. ZOYA then discussed the patient's need for a trilogy and DME companies. The patient's reports that the patient gets his oxygen from [facility] and she chose to receive the trilogy from [facility]. ZOYA contacted and faxed the patient's information to Denzel at [facility]. ZOYA awaiting approval.
--- NOTE | 2019-02-19 16:32 | NUR ---
Pt arrived to room 356 he is A/O x3. His breathing is even and unlabored on 3L of O2 via NC. Pt denies SOB. Expiratory crackles present bilaterally. Pt denies any pain at this time. No N/V. Chaim DD. Soft touch call light within reach. Pt denies any needs at this time.
--- NOTE | 2019-02-19 19:36 | NUR ---
Report given to LISA Sotelo. Pt was feeling nauseous, having heart burn this afternoon, GI cocktail and Pepcid administered. Pt denies needs at this time. Call light within reach.
--- NOTE | 2019-02-19 20:30 | NUR ---
Patient report received from Mena Paez at shift change. Upon assessment at this time patient is resting comfortably, watching tv. Denies pain. Reports nausea. Per report GI cocktail given by day shift for nausea. Rucker to dependant drainage present for neurogenic bladder, output clear yellow. Patient on 3.0 L NC, no SOA reported. No other needs reported/observed.
--- NOTE | 2019-02-20 00:01 | NUR ---
Pativanessa continues to not want to take his HS medications due to nausea. Would like for me to check back in 30 minutes again to see if he is up to taking them.
[2019-02-20 04:02] VITALS: BP 136/64; PULSE 102; TEMP 98.2
--- NOTE | 2019-02-20 05:42 | NUR ---
Patient report given to Mena Shelley at this time. Patient is resting.
[2019-02-20 08:04] VITALS: BP 124/57; PULSE 99; TEMP 99
[2019-02-20 09:07] LABS: BASO % 0.1 % (0.0-2.0); GRAN # 16.2 (1.4-6.5); GRAN % 85.8 % (42.2-75.2); HEMATOCRIT 39.4 % (42.0-52.0); HEMOGLOBIN 12.6 g/dl (13.5-18.0); LYMPH # 1.2 (1.2-3.4); LYMPH % 6.4 % (20.0-51.0); MEAN CELL VOLUME 91 fl (80.0-100.0); MEAN CORPUSCULAR HEMOGLOBIN 29 pg (27.0-31.0); MEAN CORPUSCULAR HGB CONC 32 g/dl (33.0-37.0); MONO # 1.3 (0.1-0.6); PLATELET COUNT 286 K/mm3 (130-400); RED BLOOD COUNT 4.33 M/mm3 (4.20-5.60); REDCELL DISTRIBUTION WIDTH-CV 14.3 % (11.5-14.5)
[2019-02-20 09:18] LABS: CREATININE, serum 0.68 (0.66-1.25); POTASSIUM 4.1 mmol/L (3.4-5.0)
--- NOTE | 2019-02-20 09:18 | NUR ---
Pt assessment complete. Pt laying in bed upon entry, at bedside. Pt is A/O x3. His breathing is even and unlabored on 3L O2 via NC. Pt denies SOB. Intermittent wet cough present. Pt has had intermittent N/V through the night and morning, small amount of brown emesis present. PRN Phenergan administered. Pt did have a large soft formed BM this am. Pt reports a headache at this time as well, denies dizziness. Pt repositioned, legs elevated on pillow. Chaim JEAN-BAPTISTE. Denies needs at this time. Call light within reach.
--- NOTE | 2019-02-20 11:07 | NUR ---
Pt continues to be nauseated after Zofran administration, unable to take morning medications. Refusing Dulcolax at this time, as patient had large semi formed BM this AM. Pt repositioned at this time. Call light within reach.
--- NOTE | 2019-02-20 11:46 | NUR ---
Pt states nausea has improved. reports patient has been having visual hallucinations. Pt is A/O x3 for me. Denies pain. Refusing medications. Will continue to monitor.
[2019-02-20 12:01] VITALS: BP 127/57; PULSE 101; TEMP 98.5
[2019-02-20 16:36] VITALS: BP 141/68; PULSE 101; TEMP 98.6
--- NOTE | 2019-02-20 18:27 | NUR ---
Patient resting in bed with family at the bedside. A&O. VSS 5L O2 NC, no reported SOA. Patient reporting nausea with dry heaves, no emesis. Nausea medication given when requested. Refusing to eat. Has coughed up small amounts of sputum, clear and thick. IV fluids infusing, intermittent occulsion. Rucker dependent drainage, melvin and cloudy. Patient on left side with pillow on right side. No further needs expressed from patient. Touch call light within reach
--- NOTE | 2019-02-20 20:20 | NUR ---
PT RESTING IN BED A+OX4. NO SOA. BOWEL SOUNDS AUDIBLE THROUGHOUT ABD. LUNG BASES DIMINISHES. UPPER LUNG FRITZ CLEAR. PT ON 3 L O2 VIA NC. FAMILY REPORTS PT NORMALLY WEARS 2L O2 AT NIGHT. ARVIZU DRAINING WELL, NO KINKS, SECURED TO LEG. CLEAR YELLOW URINE NOTED. HEART RRR. 3+ EDEMA IN BILAT LEGS- HEELS FLOATED. BILAT 2+ EDMA NOTED IN BILAT ARMS. TURNING Q2H. SACREAL REGION RED. IV IS POSISITONAL- BUT FLUSHES WELL, NO REDNESS, NO SWELLING- IV FLUIDS RUNNING AT ORDERED RATE. PT REPROTS NAUSEA- PRN ZOFRAN GIVEN- REPORTS SOME RELIEF. NO VOMITING AT THIS TIME. SOFT TOUCH CALL LIGHT IN REACH. TURNED AT THIS TIME. NO NEEDS.
[2019-02-20 20:40] VITALS: BP 100/63; PULSE 99; TEMP 98
[2019-02-20 23:10] VITALS: BP 138/68; PULSE 107; TEMP 98.5
--- NOTE | 2019-02-20 23:26 | NUR ---
PT REPORT NAUSEA- PRN ZOFRAN NOT AVALIABLE AT THIS TIME. PRN PHENERGAN GIVEN. TURNING Q2H- PT NOW ON LEFT SIDE. NO NEEDS AT THIS TIME. CALL IGHT IN REACH. VSS
--- NOTE | 2019-02-21 01:00 | NUR ---
PT REPORTS SLIGHT RELIEF WITH PHENERGAN- PT REFUSED ZOFRAN AT THIS TIME. ARVIZU DRAINING FREELY, NO KINKS. SECURED TO L LEG. TURNING Q2H
[2019-02-21 04:27] VITALS: BP 124/65; PULSE 101; TEMP 98.5
--- NOTE | 2019-02-21 04:56 | NUR ---
PT HAD AN UNEVENTFUL NIGHT. REPORTS NO PAIN. NAUSEA REPORTED THROUGHOUT NIGHT- PRN ZOFRAN AND PHENERGAN GIVEN. GI COCKTAIL GIVEN FOR REPORTED HEARTBURN. NO BM DURING NIGHT. PT ON 3 L VIS NC- SKIN INTACT BEHIND EARS AND NOSE. VSS. LFA IV FLUSHES WELL, POSITIONAL, NO REDNESS, NO SWELLING. ARVIZU DRAINING FREELY, NO KINKS, SECURED TO LEG. CLEAR YELLOW URINE NOTED. Q2H TURN THROUGHOUT NIGHT. A+oX4- CONFUSED AT TIMES BUT ORIENTED EASILY. 3+ BILAT LOWER EXTREMITY EDEMA NOTED. 2+ BILAT UPPER EXTREMITY EDEMA NOTED. HEELS FLOATED. SACREAL REGION RED. NO NEEDS AT THIS TIME. SOFT TOUCH CALL LIGHT IN REACH. BED ALARM ON.
--- NOTE | 2019-02-21 05:26 | NUR ---
PT 02 SAT DECREASED TO LOW 80S- INCREASED O2 TO 10 L ON HIGH FLOW NC- CALLED RT. PT REFUSED CPAP- O2 SAT INCREASED TO 97%- O2 DECREASED TO 5L PT SAT NOW 95%. PT STABLE. WILL CONTINUE TO MINITOR.
[2019-02-21 06:34] LABS: BASO % 0.1 % (0.0-2.0); GRAN # 9.8 (1.4-6.5); GRAN % 82.7 % (42.2-75.2); HEMATOCRIT 37.5 % (42.0-52.0); HEMOGLOBIN 11.9 g/dl (13.5-18.0); LYMPH # 1.1 (1.2-3.4); LYMPH % 9.2 % (20.0-51.0); MEAN CELL VOLUME 92 fl (80.0-100.0); MEAN CORPUSCULAR HEMOGLOBIN 29 pg (27.0-31.0); MEAN CORPUSCULAR HGB CONC 32 g/dl (33.0-37.0); MEAN PLATELET VOLUME 8.8 fl (7.4-10.4); MONO # 0.9 (0.1-0.6); MONO % 7.4 % (1.7-9.3); PLATELET COUNT 271 K/mm3 (130-400); RED BLOOD COUNT 4.06 M/mm3 (4.20-5.60); REDCELL DISTRIBUTION WIDTH-CV 14.4 % (11.5-14.5)
[2019-02-21 06:45] LABS: CALCIUM 8.3 mg/dL (8.4-10.2); CREATININE, serum 0.56 (0.66-1.25); MAGNESIUM 2.4 mg/dL (1.6-2.3); POTASSIUM 4.5 mmol/L (3.4-5.0)
--- NOTE | 2019-02-21 07:00 | NUR ---
Report received from LISA Jackson. pT in bed resting with eyes closed, will continue to monitor.
--- NOTE | 2019-02-21 07:13 | NUR ---
report given to faith henley. pt sleeping at this time
[2019-02-21 07:23] VITALS: BP 130/50; PULSE 95; TEMP 98.5
--- NOTE | 2019-02-21 10:15 | NUR ---
ssessment charted, pt very agitated this am about "being stuck in bed so long". Used laya lift with SPINDLE CARVER and Gertrudis to get pt up to commode for morning bowel movement. Pt sacrem redenned but blanches. BLE +3, BUE +2 edema. Lungs are coarse on R side with bases diminished. Per pt "feeling better because he is complaining". Not interested in eating anythign today but denies nausea or vomiting. Will continue to monitor.
[2019-02-21 11:19] VITALS: BP 113/58; PULSE 81; TEMP 98.5
[2019-02-21 15:39] VITALS: BP 126/51; PULSE 79; TEMP 98.1
--- NOTE | 2019-02-21 18:43 | NUR ---
Pt has had a good day. up to chair, up to commodex2 and back to bed with laya lift. Pt did eat a little supper, deneis any nausea. Will give bedside shift report to nightshift nurse who will resume care.
[2019-02-21 19:21] VITALS: BP 111/60; PULSE 81; TEMP 98.3
--- NOTE | 2019-02-21 20:30 | NUR ---
pt resting in bed a+ox4. reports no pain. turning q2h. iv flushes well, no redness, no swelling- iv fluids running at ordered rate. heels floated- red. sacreal region red. HOB below 30 degrees. pedal and radial pulses felt. 4+ edema noted in bilat lower extr. 2+ edema noted in bilat upper extr. lungs clear with an ex rubbing sound. bowel sounds heard throughout abd. heart rrr. no needs at this time soft touch call light in reach
[2019-02-21 23:30] VITALS: BP 123/61; PULSE 79; TEMP 97.8
[2019-02-22 03:51] VITALS: BP 146/77; PULSE 76; TEMP 97.6
--- NOTE | 2019-02-22 05:22 | NUR ---
pt had an uneventful night. turned q2H. iv flushes well, no redness, no swelling. iv tubing changed. jamil draining freely, no kinks, secured to left leg. adaquate urine output throughout night. clear and yellow urine noted. 3-4+ edema noted bilat legs. 2+ edema noted in bilat upper extr. no soa. no pain reported. pt on 2L via nc througout night. vss. no needs this time. call light in reach. bed alrm on.
--- NOTE | 2019-02-22 06:49 | NUR ---
report given to faith molina
[2019-02-22 06:54] LABS: BASO % 0.1 % (0.0-2.0); EOS % 0.1 % (0-4.0); GRAN # 6.8 (1.4-6.5); GRAN % 71.3 % (42.2-75.2); HEMATOCRIT 37.1 % (42.0-52.0); HEMOGLOBIN 11.7 g/dl (13.5-18.0); LYMPH # 1.9 (1.2-3.4); LYMPH % 19.4 % (20.0-51.0); MEAN CELL VOLUME 92 fl (80.0-100.0); MEAN CORPUSCULAR HEMOGLOBIN 29 pg (27.0-31.0); MEAN CORPUSCULAR HGB CONC 32 g/dl (33.0-37.0); MEAN PLATELET VOLUME 8.7 fl (7.4-10.4); MONO # 0.8 (0.1-0.6); MONO % 8.6 % (1.7-9.3); PLATELET COUNT 250 K/mm3 (130-400); RED BLOOD COUNT 4.03 M/mm3 (4.20-5.60); REDCELL DISTRIBUTION WIDTH-CV 13.9 % (11.5-14.5)
[2019-02-22 07:13] LABS: CALCIUM 8.6 mg/dL (8.4-10.2); CREATININE, serum 0.53 (0.66-1.25); POTASSIUM 3.9 mmol/L (3.4-5.0)
--- NOTE | 2019-02-22 07:28 | NUR ---
Received report from LISA Jackson.
[2019-02-22 07:58] VITALS: BP 128/51; PULSE 77; TEMP 97.8
--- NOTE | 2019-02-22 08:40 | NUR ---
Pt awake and alert upon entry, no C/O pain at this time, shift assessments complete, place Pt on bedside commode, left Pt call light in reach.
--- NOTE | 2019-02-22 10:38 | NUR ---
Follow up visit from the plastic tile setter. No needs right now.
[2019-02-22] MEDS ORDERED: SENNA-S 50 MG-81 TAB PO (10:55)
[2019-02-22] MEDS ORDERED: LEADER CLEARLAX PO (10:55)
[2019-02-22] MEDS ORDERED: PREDNISONE20 MG PO (10:58)
[2019-02-22 11:28] VITALS: BP 117/48; PULSE 74; TEMP 98.3
--- NOTE | 2019-02-22 13:13 | NUR ---
ZOYA faxed documentation for Trilogy to Denzel at [facility]. ZOYA awaiting response. ZOYA will continue to follow.
--- NOTE | 2019-02-22 13:19 | NUR ---
ZOYA presented the IM form to the pt and his . Patient understood and signed the form. A copy was provided to the pt and the original was placed in the chart. ZOYA will continue to follow.
--- NOTE | 2019-02-22 17:26 | NUR ---
Asda from [facility] contacted ZOYA and reports that the pt insurance denied coverage for Trilogy. ZOYA informed PA and Hospitalist and are recommending a outpatient sleep study. ZOYA met with the pt and his to update and they verblized understanding and agreed to the discharge plan. The pt is to discharge home with today, 8-8 with [place] home health services with caregivers. ZOYA faxed discharge orders and medical records to [place] [facility] and to [facility]. There are additional needs at this time.
--- NOTE | 2019-02-22 18:34 | NUR ---
Pt discharged to home, escorted to entrance, left via private auto.
--- NOTE | 2019-02-23 08:45 | NUR ---
Pt's pulmonology appointment changed to 02/28/19 @ 7684, Pt called no answer, left message with request to call if questions.
== END 2019-02-22 18:05 | disposition home health service (06) | DRG 871 ==
LOC: COL.ER 00:41 → ICU 03:47 → MEDICAL 03:47 → ICU 02-19 06:31 → MEDICAL 02-19 15:45
PROVIDERS: Emergency Medicine; Internal Medicine Critical Care Medicine; Nurse Practitioner Family; Physician Assistant; ADMIT Internal Medicine
DX: A41.9 Sepsis, unspecified organism (principal); J18.1 Lobar pneumonia, unspecified organism; J96.22 Acute and chronic respiratory failure with hypercapnia; J96.21 Acute and chronic respiratory failure with hypoxia; G82.50 Quadriplegia, unspecified; J44.1 Chronic obstructive pulmonary disease with (acute) exacerbation; J44.0 Chronic obstructive pulmonary disease with (acute) lower respiratory infection; K59.00 Constipation, unspecified; Z66 Do not resuscitate; S14.109S Unspecified injury at unspecified level of cervical spinal cord, sequela; G47.30 Sleep apnea, unspecified; F32.9 Major depressive disorder, single episode, unspecified; E78.5 Hyperlipidemia, unspecified; D11.0 Benign neoplasm of parotid gland; Z87.891 Personal history of nicotine dependence
CPT/HCPCS: 99222; 99231-AI; 99232-AI; 99233-AI; 99239; A4216; J0456; J0696; J1650; J2405; J2543; J2550; J2930; J3370; J7030; J7050; J7512; Q9967

== ENCOUNTER → 2019-03-13 | Outpatient (CLI) | payer OTHER ==
[~2019-03-13] MED LIST changes: +LEADER CLEARLAX PO; +SENNA-S 50 MG-81 TAB PO; +WELLBUTRIN XL300 M1 PO
== END ==
LOC: COL.VAS 12:15
DX: J96.22 Acute and chronic respiratory failure with hypercapnia (principal); I51.7 Cardiomegaly; I35.1 Nonrheumatic aortic (valve) insufficiency

== ENCOUNTER 2019-03-28 10:00 | Emergency (ER) | payer OTHER ==
[~2019-03-28] VITALS: Ht 182.9 cm; Wt 95.0 kg
[2019-03-28 10:58] LABS: ALANINE AMINOTRANSFERASE 12 U/L (21-72); ALBUMIN 4.4 gm/dL (3.5-5.0); ALKALINE PHOSPHATASE 69 U/L (50-136); ANION GAP 9 mmol/L (7-16); AST,SGOT 22 U/L (15-37); BILIRUBIN,TOTAL 0.6 mg/dL (0.0-1.0); BLOOD UREA NITROGEN 14 mg/dL (9-20); C-REACTIVE PROTEIN 2.2 mg/dL (0.0-0.9); CALCIUM 9.9 mg/dL (8.4-10.2); CARBON DIOXIDE 30 mmol/L (22-30); CHLORIDE 100 mmol/L (98-107); CREATININE, serum 0.67 (0.66-1.25); GLUCOSE 97 mg/dL (74-106); POTASSIUM 4.1 mmol/L (3.4-5.0); SODIUM 139 mmol/L (137-145); TOTAL PROTEIN 7.6 gm/dL (6.4-8.2)
[2019-03-28 11:05] LABS: INR 1.1 (0.8-3.0); PROTHROMBIN TIME 12.3 SECONDS (9.7-12.8)
[2019-03-28 11:15] LABS: TROPONIN-I < 0.012 ng/mL (0.000-0.035)
[2019-03-28 11:55] LABS: HEMATOCRIT 43.8 % (42.0-52.0); HEMOGLOBIN 13.9 g/dl (13.5-18.0); MEAN CELL VOLUME 91 fl (80.0-100.0); MEAN CORPUSCULAR HEMOGLOBIN 29 pg (27.0-31.0); MEAN CORPUSCULAR HGB CONC 32 g/dl (33.0-37.0); MEAN PLATELET VOLUME 9.6 fl (7.4-10.4); PLATELET COUNT 349 K/mm3 (130-400); RED BLOOD COUNT 4.83 M/mm3 (4.20-5.60); REDCELL DISTRIBUTION WIDTH-CV 15.1 % (11.5-14.5)
[2019-03-28 11:57] LABS: ANISOCYTOSIS 1+; LYMPHOCYTE 7 % (20.0-51.0); NEUTROPHILS 88 % (42.0-75.2); PLATELET ESTIMATE NORMAL (NORMAL)
[2019-03-28 12:13] LABS: COLLECTION METHOD CLEAN CATCH
[2019-03-28 12:24] LABS: MUCOUS Present /lpf; PH 7 (5-8); SQUAMOUS EPITHELIAL None Seen /hpf; URINE APPEARANCE Hazy; URINE BACTERIA Rare /hpf; URINE BILIRUBIN Negative (NEGATIVE); URINE BLOOD Negative (NEGATIVE); URINE COLOR Amber; URINE GLUCOSE Negative (NEGATIVE); URINE KETONE Negative (NEGATIVE); URINE LEUKOCYTE ESTERASE Negative (NEGATIVE); URINE NITRATE Negative (NEGATIVE); URINE PROTEIN(semi-quant) Negative (NEGATIVE); URINE RBC 0-2 /hpf; URINE UROBILINOGEN Negative (NEGATIVE)
[2019-03-28] MEDS ORDERED: ALBUTEROL0.83 MG/ML INH (12:58)
[2019-03-28] MEDS ORDERED: RT ADVAIR HFA 2312 G INH (12:59)
[2019-03-28] MEDS ORDERED: DALIRESP500 MCG PO (13:01)
[2019-03-28] MEDS ORDERED: MUCINEX 60600 MG/TA1 PO (13:04)
[2019-03-28] MEDS ORDERED: DOXYCYCLINE 10100 MG PO (13:10)
[2019-03-28] MEDS ORDERED: OMNICEF 300MG300 MG PO (13:10)
[2019-03-28 13:28] VITALS: BP 112/54; PULSE 81; TEMP 98
[2019-03-28] MEDS ORDERED: PREDNISONE20 MG PO (14:55)
== END 2019-03-28 13:28 | disposition home or self-care (01) ==
LOC: COL.ER 10:00
PROVIDERS: Emergency Medicine
DX: R06.02 Shortness of breath (principal); J44.9 Chronic obstructive pulmonary disease, unspecified; E11.9 Type 2 diabetes mellitus without complications; E78.5 Hyperlipidemia, unspecified; Z98.890 Other specified postprocedural states; Z87.891 Personal history of nicotine dependence; Z79.52 Long term (current) use of systemic steroids; Z79.82 Long term (current) use of aspirin; Z79.51 Long term (current) use of inhaled steroids
CPT/HCPCS: A4216; J0696; J2930; J7030

== ENCOUNTER 2019-05-16 13:00 | Outpatient (RCR) | payer OTHER ==
[~2019-05-16 13:00] MED LIST changes: +ALBUTEROL0.83 MG/ML INH; +DALIRESP500 MCG PO; +RT ADVAIR HFA 2312 G INH
== END 2019-05-17 | disposition home or self-care (01) ==
LOC: WSPT
DX: G82.50 Quadriplegia, unspecified (principal)

== ENCOUNTER 2019-05-29 12:45 | Outpatient (RCR) | payer OTHER | END 2019-05-31 | disposition home or self-care (01) | LOC: WSOT | DX: G82.52 Quadriplegia, C1-C4 incomplete (principal) ==

== ENCOUNTER 2019-06-20 20:40 | Inpatient (IN) | payer MEDICARE ==
[~2019-06-20] VITALS: Ht 182.9 cm; Wt 97.2 kg
[2019-06-20] MEDS ORDERED: SODIUM CHLORIDE4 M1 IH (21:26)
[2019-06-20] MEDS ORDERED: SPIRIVA RE2.5 MCG/Ac IH (21:28)
[2019-06-20] MEDS ORDERED: RT ADVAIR HFA 2312 G IH (21:32)
[2019-06-20 21:44] LABS: HEMATOCRIT 44.8 % (42.0-52.0); HEMOGLOBIN 14.4 g/dl (13.5-18.0); MEAN CELL VOLUME 90 fl (80.0-100.0); MEAN CORPUSCULAR HEMOGLOBIN 29 pg (27.0-31.0); MEAN CORPUSCULAR HGB CONC 32 g/dl (33.0-37.0); MEAN PLATELET VOLUME 8.8 fl (7.4-10.4); PLATELET COUNT 241 K/mm3 (130-400); RED BLOOD COUNT 4.99 M/mm3 (4.20-5.60); REDCELL DISTRIBUTION WIDTH-CV 13.9 % (11.5-14.5)
[2019-06-20 21:51] LABS: PROTHROMBIN TIME 12.2 SECONDS (9.7-12.8)
[2019-06-20 21:54] LABS: PARTIAL THROMBOPLASTIN TIME 29.5 SECONDS (26.0-37.0)
[2019-06-20 21:54] LABS: ALANINE AMINOTRANSFERASE 15 U/L (21-72); ALBUMIN 4.4 gm/dL (3.5-5.0); ALKALINE PHOSPHATASE 89 U/L (50-136); ANION GAP 11 mmol/L (7-16); AST,SGOT 23 U/L (15-37); BILIRUBIN,TOTAL 0.5 mg/dL (0.0-1.0); BLOOD UREA NITROGEN 16 mg/dL (9-20); CALCIUM 9.7 mg/dL (8.4-10.2); CARBON DIOXIDE 27 mmol/L (22-30); CHLORIDE 100 mmol/L (98-107); CREATININE, serum 0.77 (0.66-1.25); GLUCOSE 117 mg/dL (74-106); POTASSIUM 4.5 mmol/L (3.4-5.0); SODIUM 138 mmol/L (137-145); TOTAL PROTEIN 7.9 gm/dL (6.4-8.2)
[2019-06-20 22:09] LABS: TROPONIN-I < 0.012 ng/mL (0.000-0.035)
[2019-06-20 22:10] LABS: COLLECTION METHOD CATHETER
[2019-06-20 22:22] LABS: PH 5 (5-8); SQUAMOUS EPITHELIAL 0-2 /hpf; URINE APPEARANCE Cloudy; URINE BACTERIA Rare /hpf; URINE BILIRUBIN Negative (NEGATIVE); URINE BLOOD Negative (NEGATIVE); URINE COLOR Yellow; URINE GLUCOSE Negative (NEGATIVE); URINE KETONE 1+ (NEGATIVE); URINE LEUKOCYTE ESTERASE 2+ (NEGATIVE); URINE NITRATE Negative (NEGATIVE); URINE PROTEIN(semi-quant) Negative (NEGATIVE); URINE UROBILINOGEN Negative (NEGATIVE)
[2019-06-20 22:24] LABS: ARTERIAL BLD GAS O2 SATURATION 93.9 % (92-100); ARTERIAL BLD GAS TCO2 CT 25.1; ARTERIAL BLOOD GAS BASE EXCESS 0.5 (-2-2); ARTERIAL BLOOD GAS PCO2 35.3 mmHg (35-45); ARTERIAL BLOOD GAS PO2 62.7 mmHg (80-100); ARTERIAL BLOOD GAS pH 7.45 (7.35-7.45)
[2019-06-20 23:17] LABS: BAND 3 % (0-10); LYMPHOCYTE 7 % (20.0-51.0); NEUTROPHILS 85 % (42.0-75.2); PLATELET ESTIMATE NORMAL (NORMAL)
[2019-06-20] MEDS ORDERED: DALIRESP500 MCG PO (23:28)
[2019-06-20] MEDS ORDERED: FLONASE NASAL S16 GM (23:46)
[2019-06-20] MEDS ORDERED: LIPITOR 10MG10 MG PO (23:46)
[2019-06-20] MEDS ORDERED: ZANAFLEX 4MG TAB4 MG PO (23:48)
[2019-06-20] MEDS ORDERED: CIPRO 500MG TA500 MG (23:50)
[2019-06-20] MEDS ORDERED: VALIUM 5MG T5 MG/TAB PO (23:50)
[2019-06-20] MEDS ORDERED: CEPHALEXIN500 M1 (23:51)
[2019-06-21] VITALS (531 sets, daily range): BP systolic 81–127; BP diastolic 43–64; PULSE 91–111; TEMP 97.7–100.4; O2SAT 89–100
[2019-06-21] MEDS ORDERED: STOOL SOFTENER100 M2 PO (00:05)
[2019-06-21] MEDS ORDERED: VASOTEC 2.2.5 MG/TAB (00:05)
[2019-06-21] MEDS ORDERED: PROBIOTIC FORMU1 CAP PO (01:40)
[2019-06-21 08:27] LABS: HEMATOCRIT 38.8 % (42.0-52.0); MEAN CELL VOLUME 90 fl (80.0-100.0); MEAN CORPUSCULAR HEMOGLOBIN 29 pg (27.0-31.0); MEAN CORPUSCULAR HGB CONC 32 g/dl (33.0-37.0); MEAN PLATELET VOLUME 9.2 fl (7.4-10.4); PLATELET COUNT 221 K/mm3 (130-400); RED BLOOD COUNT 4.29 M/mm3 (4.20-5.60); REDCELL DISTRIBUTION WIDTH-CV 14.4 % (11.5-14.5)
[2019-06-21 08:36] LABS: ALBUMIN 3.6 gm/dL (3.5-5.0); BILIRUBIN,TOTAL 0.6 mg/dL (0.0-1.0); CALCIUM 8.5 mg/dL (8.4-10.2); CREATININE, serum 0.65 (0.66-1.25); POTASSIUM 3.9 mmol/L (3.4-5.0); TOTAL PROTEIN 6.6 gm/dL (6.4-8.2)
[2019-06-21 08:47] LABS: HEMOGLOBIN 12.4 g/dl (13.5-18.0)
[2019-06-21 09:49] LABS: BAND 5 % (0-10); LYMPHOCYTE 7 % (20.0-51.0); NEUTROPHILS 85 % (42.0-75.2); PLATELET ESTIMATE NORMAL (NORMAL); TOXIC GRANULATION PRESENT
[2019-06-22] VITALS (397 sets, daily range): BP systolic 95–126; BP diastolic 51–57; PULSE 80–119; TEMP 97.4–99.5; O2SAT 73–100
[2019-06-22 08:20] LABS: BASO # 0.1 (0.0-0.2); BASO % 0.5 % (0.0-2.0); EOS # 0.1 (0.0-0.7); EOS % 0.5 % (0-4.0); GRAN # 13.6 (1.4-6.5); GRAN % 82.5 % (42.2-75.2); HEMOGLOBIN 10.6 g/dl (13.5-18.0); LYMPH # 1.5 (1.2-3.4); LYMPH % 9.3 % (20.0-51.0); MEAN CELL VOLUME 92 fl (80.0-100.0); MEAN CORPUSCULAR HEMOGLOBIN 29 pg (27.0-31.0); MEAN CORPUSCULAR HGB CONC 32 g/dl (33.0-37.0); MEAN PLATELET VOLUME 8.6 fl (7.4-10.4); MONO # 1.1 (0.1-0.6); MONO % 6.6 % (1.7-9.3); PLATELET COUNT 207 K/mm3 (130-400); RED BLOOD COUNT 3.65 M/mm3 (4.20-5.60); REDCELL DISTRIBUTION WIDTH-CV 14.5 % (11.5-14.5)
[2019-06-22 08:21] LABS: HEMATOCRIT 33.4 % (42.0-52.0)
[2019-06-22 08:28] LABS: ALBUMIN 3.1 gm/dL (3.5-5.0); BILIRUBIN,TOTAL 0.4 mg/dL (0.0-1.0); CALCIUM 8.5 mg/dL (8.4-10.2); CREATININE, serum 0.64 (0.66-1.25); POTASSIUM 3.7 mmol/L (3.4-5.0); TOTAL PROTEIN 5.9 gm/dL (6.4-8.2)
[2019-06-23] VITALS (7 sets, daily range): BP systolic 106–152; BP diastolic 50–80; PULSE 92–108; TEMP 97.6–98.2
[2019-06-23 07:01] LABS: BASO # 0.1 (0.0-0.2); BASO % 0.5 % (0.0-2.0); EOS # 0.1 (0.0-0.7); EOS % 0.7 % (0-4.0); GRAN # 11.2 (1.4-6.5); GRAN % 83.4 % (42.2-75.2); HEMOGLOBIN 11.3 g/dl (13.5-18.0); LYMPH # 1.2 (1.2-3.4); LYMPH % 8.7 % (20.0-51.0); MEAN CELL VOLUME 91 fl (80.0-100.0); MEAN CORPUSCULAR HEMOGLOBIN 29 pg (27.0-31.0); MEAN CORPUSCULAR HGB CONC 32 g/dl (33.0-37.0); MEAN PLATELET VOLUME 9.5 fl (7.4-10.4); MONO # 0.9 (0.1-0.6); MONO % 6.5 % (1.7-9.3); PLATELET COUNT 245 K/mm3 (130-400); RED BLOOD COUNT 3.93 M/mm3 (4.20-5.60); REDCELL DISTRIBUTION WIDTH-CV 14.3 % (11.5-14.5)
[2019-06-23 07:14] LABS: HEMATOCRIT 35.7 % (42.0-52.0)
[2019-06-23 07:15] LABS: ALBUMIN 3.4 gm/dL (3.5-5.0); BILIRUBIN,TOTAL 0.4 mg/dL (0.0-1.0); CALCIUM 8.7 mg/dL (8.4-10.2); CREATININE, serum 0.62 (0.66-1.25); POTASSIUM 3.5 mmol/L (3.4-5.0); TOTAL PROTEIN 6.4 gm/dL (6.4-8.2)
[2019-06-23 23:54] LABS: GASTROCCULT POSITIVE; pH GASTRIC CONTENTS 3
[2019-06-24 03:08] VITALS: BP 143/58; PULSE 112; TEMP 98.4
[2019-06-24 06:56] LABS: BASO # 0.1 (0.0-0.2); BASO % 0.4 % (0.0-2.0); EOS % 0.1 % (0-4.0); GRAN # 13.5 (1.4-6.5); GRAN % 84.5 % (42.2-75.2); HEMOGLOBIN 11.4 g/dl (13.5-18.0); LYMPH # 1.3 (1.2-3.4); LYMPH % 7.8 % (20.0-51.0); MEAN CELL VOLUME 93 fl (80.0-100.0); MEAN CORPUSCULAR HEMOGLOBIN 29 pg (27.0-31.0); MEAN CORPUSCULAR HGB CONC 31 g/dl (33.0-37.0); MEAN PLATELET VOLUME 9.1 fl (7.4-10.4); MONO % 6.5 % (1.7-9.3); PLATELET COUNT 273 K/mm3 (130-400); RED BLOOD COUNT 3.97 M/mm3 (4.20-5.60); REDCELL DISTRIBUTION WIDTH-CV 14.5 % (11.5-14.5)
[2019-06-24 07:06] LABS: HEMATOCRIT 36.8 % (42.0-52.0)
[2019-06-24 07:08] LABS: ALBUMIN 3.5 gm/dL (3.5-5.0); BILIRUBIN,TOTAL 0.4 mg/dL (0.0-1.0); CALCIUM 8.6 mg/dL (8.4-10.2); CREATININE, serum 0.68 (0.66-1.25); POTASSIUM 3.6 mmol/L (3.4-5.0); TOTAL PROTEIN 6.5 gm/dL (6.4-8.2)
[2019-06-24 07:53] VITALS: BP 136/59; PULSE 107; TEMP 99
[2019-06-24 11:42] VITALS: BP 150/66; PULSE 110; TEMP 98.7
[2019-06-24 15:35] VITALS: BP 124/58; PULSE 96; TEMP 97.7
[2019-06-24 20:04] VITALS: BP 148/65; PULSE 118; TEMP 98.5
[2019-06-24 23:46] VITALS: BP 104/53; PULSE 86; TEMP 97.9
[2019-06-25 03:02] VITALS: BP 142/54; PULSE 103; TEMP 98.1
[2019-06-25 08:24] LABS: BASO # 0.1 (0.0-0.2); BASO % 0.5 % (0.0-2.0); EOS % 0.3 % (0-4.0); GRAN % 80.7 % (42.2-75.2); HEMATOCRIT 38.8 % (42.0-52.0); HEMOGLOBIN 11.7 g/dl (13.5-18.0); LYMPH # 1.5 (1.2-3.4); LYMPH % 10.1 % (20.0-51.0); MEAN CELL VOLUME 94 fl (80.0-100.0); MEAN CORPUSCULAR HEMOGLOBIN 28 pg (27.0-31.0); MEAN CORPUSCULAR HGB CONC 30 g/dl (33.0-37.0); MEAN PLATELET VOLUME 8.8 fl (7.4-10.4); MONO # 1.1 (0.1-0.6); MONO % 7.5 % (1.7-9.3); PLATELET COUNT 267 K/mm3 (130-400); RED BLOOD COUNT 4.13 M/mm3 (4.20-5.60); REDCELL DISTRIBUTION WIDTH-CV 14.3 % (11.5-14.5)
[2019-06-25 10:52] LABS: CREATININE, serum 0.64 (0.66-1.25); POTASSIUM 3.7 mmol/L (3.4-5.0)
[2019-06-25 11:00] LABS: ALBUMIN 3.7 gm/dL (3.5-5.0); BILIRUBIN,TOTAL 0.4 mg/dL (0.0-1.0); MAGNESIUM 1.9 mg/dL (1.6-2.3); PHOSPHOROUS 2.7 mg/dL (2.5-4.5); TOTAL PROTEIN 6.8 gm/dL (6.4-8.2)
[2019-06-25 11:31] VITALS: BP 141/70; PULSE 98; TEMP 97.7
[2019-06-25 18:11] VITALS: BP 126/75; PULSE 99; TEMP 97.9
[2019-06-25 21:37] VITALS: BP 105/55; PULSE 91; TEMP 97.6
[2019-06-26 00:21] VITALS: BP 137/87; PULSE 93; TEMP 98
[2019-06-26 04:31] VITALS: BP 136/75; PULSE 117; TEMP 98.5
[2019-06-26 07:10] LABS: CALCIUM 9.3 mg/dL (8.4-10.2); CREATININE, serum 0.58 (0.66-1.25); PHOSPHOROUS 1.6 mg/dL (2.5-4.5); POTASSIUM 3.3 mmol/L (3.4-5.0)
[2019-06-26 07:24] VITALS: BP 155/63; PULSE 116; TEMP 98.9
[2019-06-26 07:26] LABS: BASO # 0.1 (0.0-0.2); BASO % 0.4 % (0.0-2.0); EOS # 0.2 (0.0-0.7); EOS % 1.1 % (0-4.0); GRAN # 13.8 (1.4-6.5); HEMOGLOBIN 11.5 g/dl (13.5-18.0); LYMPH # 1.1 (1.2-3.4); LYMPH % 6.9 % (20.0-51.0); MEAN CELL VOLUME 93 fl (80.0-100.0); MEAN CORPUSCULAR HEMOGLOBIN 29 pg (27.0-31.0); MEAN CORPUSCULAR HGB CONC 31 g/dl (33.0-37.0); MEAN PLATELET VOLUME 9.2 fl (7.4-10.4); MONO # 1.3 (0.1-0.6); MONO % 7.9 % (1.7-9.3); PLATELET COUNT 273 K/mm3 (130-400); RED BLOOD COUNT 3.95 M/mm3 (4.20-5.60); REDCELL DISTRIBUTION WIDTH-CV 14.5 % (11.5-14.5)
[2019-06-26 07:30] LABS: HEMATOCRIT 36.6 % (42.0-52.0)
[2019-06-26 12:19] VITALS: BP 125/54; PULSE 99; TEMP 97.6
[2019-06-26 15:55] VITALS: BP 141/52; PULSE 94; TEMP 98.1
[2019-06-26 19:03] VITALS: BP 140/69; PULSE 80; TEMP 97.9
[2019-06-27] VITALS (7 sets, daily range): BP systolic 13–140; BP diastolic 50–65; PULSE 82–102; TEMP 97.3–98
[2019-06-27 06:28] LABS: BASO % 0.3 % (0.0-2.0); EOS % 0.1 % (0-4.0); GRAN # 10.8 (1.4-6.5); GRAN % 82.4 % (42.2-75.2); HEMOGLOBIN 10.8 g/dl (13.5-18.0); LYMPH # 1.1 (1.2-3.4); LYMPH % 8.4 % (20.0-51.0); MEAN CELL VOLUME 91 fl (80.0-100.0); MEAN CORPUSCULAR HEMOGLOBIN 29 pg (27.0-31.0); MEAN CORPUSCULAR HGB CONC 32 g/dl (33.0-37.0); MEAN PLATELET VOLUME 9.3 fl (7.4-10.4); MONO # 1.1 (0.1-0.6); MONO % 8.2 % (1.7-9.3); PLATELET COUNT 256 K/mm3 (130-400); RED BLOOD COUNT 3.75 M/mm3 (4.20-5.60); REDCELL DISTRIBUTION WIDTH-CV 14.5 % (11.5-14.5)
[2019-06-27 06:36] LABS: CALCIUM 8.9 mg/dL (8.4-10.2); CREATININE, serum 0.52 (0.66-1.25); MAGNESIUM 2.1 mg/dL (1.6-2.3); PHOSPHOROUS 2.4 mg/dL (2.5-4.5); POTASSIUM 3.3 mmol/L (3.4-5.0)
[2019-06-27 06:42] LABS: PRE ALBUMIN 10.5 mg/dL (17.6-36.0)
[2019-06-27] MEDS ORDERED: PREDNISONE20 MG PO (11:10)
[2019-06-27] MEDS ORDERED: LEVAQUIN 750MG750 M1 PO (11:10)
[2019-06-27] MEDS ORDERED: PROTONIX 40MG T40 MG PO (11:12)
[2019-06-27 19:20] LABS: COLLECTION METHOD CATHETER
[2019-06-27 19:28] LABS: PH 6 (5-8); SQUAMOUS EPITHELIAL None Seen /hpf; URINE APPEARANCE Clear; URINE BACTERIA None Seen /hpf; URINE BILIRUBIN Negative (NEGATIVE); URINE BLOOD Negative (NEGATIVE); URINE COLOR Straw; URINE GLUCOSE Negative (NEGATIVE); URINE KETONE Negative (NEGATIVE); URINE LEUKOCYTE ESTERASE Negative (NEGATIVE); URINE NITRATE Negative (NEGATIVE); URINE PROTEIN(semi-quant) Negative (NEGATIVE); URINE RBC 0-2 /hpf; URINE UROBILINOGEN Negative (NEGATIVE)
[2019-06-28 03:59] VITALS: BP 122/62; PULSE 97
[2019-06-28 06:00] LABS: CALCIUM 9.1 mg/dL (8.4-10.2); CREATININE, serum 0.5 (0.66-1.25); MAGNESIUM 2.1 mg/dL (1.6-2.3); POTASSIUM 3.6 mmol/L (3.4-5.0)
[2019-06-28 08:05] LABS: BASO % 0.3 % (0.0-2.0); EOS # 0.1 (0.0-0.7); EOS % 1.3 % (0-4.0); GRAN % 71.7 % (42.2-75.2); HEMOGLOBIN 10.8 g/dl (13.5-18.0); LYMPH # 1.6 (1.2-3.4); LYMPH % 16.7 % (20.0-51.0); MEAN CELL VOLUME 91 fl (80.0-100.0); MEAN CORPUSCULAR HEMOGLOBIN 29 pg (27.0-31.0); MEAN CORPUSCULAR HGB CONC 32 g/dl (33.0-37.0); MEAN PLATELET VOLUME 9.6 fl (7.4-10.4); MONO # 0.9 (0.1-0.6); MONO % 9.5 % (1.7-9.3); PLATELET COUNT 294 K/mm3 (130-400); RED BLOOD COUNT 3.76 M/mm3 (4.20-5.60); REDCELL DISTRIBUTION WIDTH-CV 14.6 % (11.5-14.5)
[2019-06-28 08:06] LABS: HEMATOCRIT 34.1 % (42.0-52.0)
[2019-06-28 08:45] VITALS: BP 114/56; PULSE 92; TEMP 97.4
[2019-06-28 12:17] VITALS: BP 129/52; PULSE 81; TEMP 97.3
== END 2019-06-28 16:20 | disposition home or self-care (01) | DRG 871 ==
LOC: COL.ER 20:40 → IMCU 22:50 → MEDICAL 06-22 15:52
PROVIDERS: Emergency Medicine; Nurse Practitioner Family; Physician Assistant; Student in an Organized Health Care Education/Training Program; ADMIT Family Medicine
PROC: 02HV33Z Insertion of Infusion Device into Superior Vena Cava, Percutaneous Approach (ICD-10-PCS; 2019-06-21)
PROC: 02PYX3Z Removal of Infusion Device from Great Vessel, External Approach (ICD-10-PCS; principal; 2019-06-28)
PROC: 5A09357 Assistance with Respiratory Ventilation, Less than 24 Consecutive Hours, Continuous Positive Airway Pressure (ICD-10-PCS; 2019-06-28)
DX: A41.9 Sepsis, unspecified organism (principal); J18.9 Pneumonia, unspecified organism; J96.21 Acute and chronic respiratory failure with hypoxia; G82.50 Quadriplegia, unspecified; R65.21 Severe sepsis with septic shock; N39.0 Urinary tract infection, site not specified; K59.2 Neurogenic bowel, not elsewhere classified; J44.1 Chronic obstructive pulmonary disease with (acute) exacerbation; J44.0 Chronic obstructive pulmonary disease with (acute) lower respiratory infection; K56.7 Ileus, unspecified; E87.3 Alkalosis; I24.8 Other forms of acute ischemic heart disease; J84.10 Pulmonary fibrosis, unspecified; E78.5 Hyperlipidemia, unspecified; K59.00 Constipation, unspecified; E87.6 Hypokalemia; E83.39 Other disorders of phosphorus metabolism; G47.33 Obstructive sleep apnea (adult) (pediatric); F32.9 Major depressive disorder, single episode, unspecified; B96.5 Pseudomonas (aeruginosa) (mallei) (pseudomallei) as the cause of diseases classified elsewhere; G47.00 Insomnia, unspecified; H35.30 Unspecified macular degeneration; N31.9 Neuromuscular dysfunction of bladder, unspecified; Z99.81 Dependence on supplemental oxygen; I25.2 Old myocardial infarction; Z79.82 Long term (current) use of aspirin; Z79.51 Long term (current) use of inhaled steroids; Z87.891 Personal history of nicotine dependence
CPT/HCPCS: 99223-AI; 99232-AI; 99233-AI; 99239; A4216; A4217; C1751; C9113; J0456; J0610; J0692; J0696; J1650; J1815; J1956; J2060; J2405; J2543; J2550; J3370; J3411; J3475; J3480; J7030; J7040; J7050; J7512; Q9967

== ENCOUNTER 2019-09-05 13:45 | Outpatient (RCR) | payer OTHER ==
[~2019-09-05 13:45] MED LIST changes: +CEPHALEXIN500 M1; +CIPRO 500MG TA500 MG; +FLONASE NASAL S16 GM; +LEVAQUIN 750MG750 M1 PO; +LIPITOR 10MG10 MG PO; +PROTONIX 40MG T40 MG PO; +SODIUM CHLORIDE4 M1 IH; +STOOL SOFTENER100 M2 PO; +VALIUM 5MG T5 MG/TAB PO; +VASOTEC 2.2.5 MG/TAB
== END 2019-09-06 | disposition home or self-care (01) ==
LOC: WSOT
DX: G82.52 Quadriplegia, C1-C4 incomplete (principal)

== ENCOUNTER 2019-09-20 13:30 | Outpatient (RCR) | payer OTHER | END 2019-11-20 | disposition home or self-care (01) | LOC: WSPT | DX: G82.50 Quadriplegia, unspecified (principal) ==

== ENCOUNTER 2019-09-26 13:00 | Outpatient (RCR) | payer OTHER | END 2019-12-11 | disposition home or self-care (01) | LOC: WSOT | DX: S14.101S Unspecified injury at C1 level of cervical spinal cord, sequela (principal); G82.50 Quadriplegia, unspecified ==

== ENCOUNTER 2020-03-27 13:15 | Outpatient (RCR) | payer MEDICARE | END 2020-03-30 | disposition home or self-care (01) | LOC: WSPT | DX: S14.106A Unspecified injury at C6 level of cervical spinal cord, initial encounter (principal); G82.50 Quadriplegia, unspecified; M50.30 Other cervical disc degeneration, unspecified cervical region ==

== ENCOUNTER 2020-05-05 12:45 | Outpatient (RCR) | payer OTHER | END 2020-05-11 | disposition home or self-care (01) | LOC: WSOT | DX: G82.50 Quadriplegia, unspecified (principal) ==

== ENCOUNTER → 2020-06-11 | Outpatient (CLI) | payer OTHER | LOC: COL.RAD 11:36 | DX: N32.89 Other specified disorders of bladder (principal) ==

== ENCOUNTER 2020-06-27 13:45 | Outpatient (RCR) | payer OTHER | END 2020-06-29 | disposition home or self-care (01) | LOC: WSPT | DX: G82.50 Quadriplegia, unspecified (principal); S14.109A Unspecified injury at unspecified level of cervical spinal cord, initial encounter ==

== ENCOUNTER 2020-07-07 13:00 | Outpatient (RCR) | payer OTHER | END 2020-07-21 | disposition home or self-care (01) | LOC: WSOT | DX: G82.50 Quadriplegia, unspecified (principal) ==

== ENCOUNTER → 2020-07-21 | Outpatient (RCR) | payer OTHER | END | disposition home or self-care (01) | LOC: WSPT | DX: G82.50 Quadriplegia, unspecified (principal) ==

== ENCOUNTER 2020-07-22 13:00 | Outpatient (RCR) | payer OTHER ==
[~2020-07-22 13:00] MED LIST changes: +MUCUS RELIEF200 MG PO; -NEURONTIN300 MG/CAP PO; +NEURONTIN400 MG/CAP PO
[2020-09-09] MEDS ORDERED: SPIRIVA RE2.5 MCG/Ac IH (13:28)
[2020-09-09] MEDS ORDERED: RT ALBUTER2.5 MG/0.5 IH (13:31)
[2020-09-09] MEDS ORDERED: PROTONIX 40MG T40 MG PO (13:33)
[2020-09-09] MEDS ORDERED: WELLBUTRIN XL300 M1 PO (13:36)
[2020-09-09] MEDS ORDERED: MUCINEX 60600 MG/TA1 PO (13:39)
[2020-09-09] MEDS ORDERED: MOBIC 7.5MG7.5 MG PO (13:40)
[2020-09-09] MEDS ORDERED: VITAMIN D31000 IU PO (13:44)
[2020-09-09] MEDS ORDERED: PROBIOTIC FORMU1 CAP PO (13:46)
[2020-09-09] MEDS ORDERED: CRANBERRY500 M3 PO (13:46)
[2020-09-09] MEDS ORDERED: PRESERVISION1 SGL PO (13:47)
[2020-09-12] MEDS ORDERED: AMOXICILLIN 8751 TAB PO (08:55)
[2020-09-12] MEDS ORDERED: OXYGEN NASAL.CANN (08:58)
== END 2020-10-20 | disposition home or self-care (01) ==
LOC: WSOT
DX: G82.50 Quadriplegia, unspecified (principal); T14.8XXA Other injury of unspecified body region, initial encounter

== ENCOUNTER 2020-09-09 12:00 | Inpatient (IN) | payer MEDICARE, BC ==
[~2020-09-09] VITALS: Ht 182.9 cm; Wt 109.1 kg
[~2020-09-09 12:00] MED LIST changes: -MUCUS RELIEF200 MG PO
[2020-09-09 12:44] LABS: ALANINE AMINOTRANSFERASE 19 U/L (4-49); ALBUMIN 4.5 gm/dL (3.5-5.0); ALKALINE PHOSPHATASE 68 U/L (50-136); ANION GAP 10 mmol/L (7-16); AST,SGOT 25 U/L (15-37); BASO # 0.1 (0.0-0.2); BASO % 0.4 % (0.0-2.0); BILIRUBIN,TOTAL 0.6 mg/dL (0.0-1.0); BLOOD UREA NITROGEN 11 mg/dL (9-20); CALCIUM 9.7 mg/dL (8.4-10.2); CARBON DIOXIDE 31 mmol/L (22-30); CHLORIDE 98 mmol/L (98-107); CREATININE, serum 0.83 (0.66-1.25); EOS # 0.3 (0.0-0.7); EOS % 1.8 % (0-4.0); GLUCOSE 74 mg/dL (74-106); GRAN # 13.4 (1.4-6.5); GRAN % 80.6 % (42.2-75.2); HEMATOCRIT 46.1 % (42.0-52.0); HEMOGLOBIN 14.9 g/dl (13.5-18.0); INR 1.1 (0.8-3.0); LYMPH # 1.9 (1.2-3.4); LYMPH % 11.3 % (20.0-51.0); MEAN CELL VOLUME 91 fl (80.0-100.0); MEAN CORPUSCULAR HEMOGLOBIN 30 pg (27.0-31.0); MEAN CORPUSCULAR HGB CONC 32 g/dl (33.0-37.0); MEAN PLATELET VOLUME 9.2 fl (7.4-10.4); MONO # 0.9 (0.1-0.6); MONO % 5.5 % (1.7-9.3); PLATELET COUNT 289 K/mm3 (130-400); POTASSIUM 4.5 mmol/L (3.4-5.0); PROTHROMBIN TIME 12.7 SECONDS (9.7-12.8); RED BLOOD COUNT 5.05 M/mm3 (4.20-5.60); REDCELL DISTRIBUTION WIDTH-CV 13.8 % (11.5-14.5); SODIUM 139 mmol/L (137-145); TOTAL PROTEIN 7.7 gm/dL (6.4-8.2)
[2020-09-09 12:56] LABS: TROPONIN-I < 0.012 ng/mL (0.000-0.035)
[2020-09-09] MEDS ORDERED: SPIRIVA RE2.5 MCG/Ac IH (13:28)
[2020-09-09] MEDS ORDERED: RT ALBUTER2.5 MG/0.5 IH (13:31)
[2020-09-09] MEDS ORDERED: PROTONIX 40MG T40 MG PO (13:33)
[2020-09-09] MEDS ORDERED: WELLBUTRIN XL300 M1 PO (13:36)
[2020-09-09] MEDS ORDERED: MUCINEX 60600 MG/TA1 PO (13:39)
[2020-09-09] MEDS ORDERED: MOBIC 7.5MG7.5 MG PO (13:40)
[2020-09-09] MEDS ORDERED: VITAMIN D31000 IU PO (13:44)
[2020-09-09] MEDS ORDERED: PROBIOTIC FORMU1 CAP PO (13:46)
[2020-09-09] MEDS ORDERED: CRANBERRY500 M3 PO (13:46)
[2020-09-09] MEDS ORDERED: PRESERVISION1 SGL PO (13:47)
[2020-09-09 15:02] LABS: ARTERIAL BLD GAS TCO2 CT 28.4; ARTERIAL BLOOD GAS BASE EXCESS 2.7 (-2-2); ARTERIAL BLOOD GAS HCO3 27.1 meq/L (22-26); ARTERIAL BLOOD GAS PCO2 41.2 mmHg (35-45); ARTERIAL BLOOD GAS PO2 77.2 mmHg (80-100); ARTERIAL BLOOD GAS pH 7.44 (7.35-7.45)
[2020-09-09 15:18] LABS: COLLECTION METHOD CLEAN CATCH
[2020-09-09 15:39] LABS: PH 6 (5-8); SQUAMOUS EPITHELIAL 0-2 /hpf; URINE APPEARANCE Hazy; URINE BACTERIA None Seen /hpf; URINE BILIRUBIN Negative (NEGATIVE); URINE BLOOD Negative (NEGATIVE); URINE COLOR Yellow; URINE GLUCOSE Negative (NEGATIVE); URINE KETONE 1+ (NEGATIVE); URINE LEUKOCYTE ESTERASE Negative (NEGATIVE); URINE NITRATE Negative (NEGATIVE); URINE PROTEIN(semi-quant) 1+ (NEGATIVE); URINE RBC 0-2 /hpf
[2020-09-09 20:29] VITALS: BP 118/90; PULSE 103; TEMP 98.1
[2020-09-10 20:00] VITALS: BP 111/50; PULSE 70; TEMP 98.4
--- NOTE | 2020-09-10 21:30 | NUR ---
Patient assessed at this time. Alert and oriented x 4. Denies having pain and discomfort. Peripheral IV to right AC with fluids running per orders. Denies SOB and dyspnea. LS coarse crackles throughout. Moist cough. Respirations even and unlabored. HRR. Telemetry in place. Capillary refill less than 3 seconds. Non-tenting skin turgor. BSAx4. Abdomen soft and non-tender. No edema. Straight cath performed, 125 mls of urine return. Tolerated well. Voices no questions, needs, or concerns at this time. Resting in bed with call light within reach.
[2020-09-11 01:22] VITALS: BP 119/52; PULSE 81; TEMP 98.3
[2020-09-11 05:16] VITALS: BP 126/51; PULSE 92; TEMP 98.3
--- NOTE | 2020-09-11 06:08 | NUR ---
Patient has been straight cathed about every 3-4 hours as requested this shift. Continues on antibiotics per orders. Voices no questions, needs, or concerns at this time. Continues on oxygen at 3 L/min via NC. High fall risk precautions in place. Resting in bed with call ligth within reach.
[2020-09-11 07:10] LABS: BASO # 0.1 (0.0-0.2); BASO % 0.4 % (0.0-2.0); EOS # 0.1 (0.0-0.7); EOS % 0.7 % (0-4.0); GRAN # 9.3 (1.4-6.5); GRAN % 79.5 % (42.2-75.2); HEMATOCRIT 37.9 % (42.0-52.0); LYMPH # 1.2 (1.2-3.4); LYMPH % 10.1 % (20.0-51.0); MEAN CELL VOLUME 90 fl (80.0-100.0); MEAN CORPUSCULAR HEMOGLOBIN 29 pg (27.0-31.0); MEAN CORPUSCULAR HGB CONC 33 g/dl (33.0-37.0); MONO % 8.7 % (1.7-9.3); PLATELET COUNT 208 K/mm3 (130-400); RED BLOOD COUNT 4.22 M/mm3 (4.20-5.60); REDCELL DISTRIBUTION WIDTH-CV 13.9 % (11.5-14.5)
[2020-09-11 07:21] LABS: HEMOGLOBIN 12.3 g/dl (13.5-18.0)
[2020-09-11 07:27] LABS: ALBUMIN 3.5 gm/dL (3.5-5.0); BILIRUBIN,TOTAL 0.8 mg/dL (0.0-1.0); CALCIUM 8.6 mg/dL (8.4-10.2); CREATININE, serum 0.84 (0.66-1.25); POTASSIUM 3.9 mmol/L (3.4-5.0); TOTAL PROTEIN 6.3 gm/dL (6.4-8.2)
--- NOTE | 2020-09-11 08:44 | NUR ---
(Late Entry 09/10/20) Accuracy Expert met with patient and patient's , Gertrudis (ph#[phone]) to discuss discharge planning. Patient sees Dr. Stanley Henderson for primary care and [facility] with [facility]. Patient has home oxygen and CPAP from [place] [facility]. SW also has a power chair, manual wheel chair, shower chair, and laya lift at home. Gertrudis advised patient's power chair is not working and she [facility]. Gertrudis states patient's manual chair is too small for patient but that a new one would require an appointment with a specialist in [place]. Gertrudis provides assistance with all of patient's ADLS and plan is for patient to return home upon discharge. Gertrudis states that she is patient's DPOA-HC. SW will continue to follow.
[2020-09-11 09:10] VITALS: BP 126/56; PULSE 100; TEMP 98
--- NOTE | 2020-09-11 09:39 | NUR ---
Pt has student nurse caring for him this AM. Pt is laying in bed upon entry, he is A/O x4. His breathing is even and unlabored on 3L O2 via NC. Pt denies SOB as well as cough. Denies any pain. No N/V, was able to eat breakfast this am. Pt has been requiring straight catheterization q3-4hours, jamil catheter to be placed by student. Pt has no further needs. Call light within reach
[2020-09-11 12:00] VITALS: BP 106/49; PULSE 82; TEMP 99.5
[2020-09-11 12:38] LABS: ANION GAP 8 mmol/L (7-16); BLOOD UREA NITROGEN 15 mg/dL (9-20); CALCIUM 8.5 mg/dL (8.4-10.2); CARBON DIOXIDE 26 mmol/L (22-30); CHLORIDE 103 mmol/L (98-107); CREATININE, serum 0.87 (0.66-1.25); GLUCOSE 100 mg/dL (74-106); SODIUM 136 mmol/L (137-145)
[2020-09-11 13:08] LABS: BASO # 0.1 (0.0-0.2); BASO % 0.4 % (0.0-2.0); EOS % 0.1 % (0-4.0); GRAN # 14.4 (1.4-6.5); GRAN % 87.1 % (42.2-75.2); HEMATOCRIT 39.3 % (42.0-52.0); HEMOGLOBIN 12.8 g/dl (13.5-18.0); MEAN CELL VOLUME 90 fl (80.0-100.0); MEAN CORPUSCULAR HEMOGLOBIN 29 pg (27.0-31.0); MEAN CORPUSCULAR HGB CONC 33 g/dl (33.0-37.0); MEAN PLATELET VOLUME 9.2 fl (7.4-10.4); MONO % 5.9 % (1.7-9.3); PLATELET COUNT 231 K/mm3 (130-400); RED BLOOD COUNT 4.35 M/mm3 (4.20-5.60); REDCELL DISTRIBUTION WIDTH-CV 13.9 % (11.5-14.5)
--- NOTE | 2020-09-11 14:08 | NUR ---
Primary nurse was assisted with [phone] patient care by [employer] student Kanika Marie and [employer] instructor Jennifer Belcher RN-.
[2020-09-11 14:16] LABS: TROPONIN-I < 0.012 ng/mL (0.000-0.035)
[2020-09-11 16:52] VITALS: BP 113/47; PULSE 68; TEMP 98.4
--- NOTE | 2020-09-11 19:20 | NUR ---
Pt had uneventful day. Slept a lot this afternoon. Denied pain. IV to RAC infiltrated, new IV started to LFA. Repositioning done for patient. Chaim JEAN-BAPTISTE.
--- NOTE | 2020-09-11 20:30 | NUR ---
Patient assessed at this time. Alert and oriented x 4, and able to make needs known. Denies having pain and discomfort at this time. Peripheral INT to left forearm. Denies SOB and dsypnea. LS CTA in upper lobes, crackles in lower. Has moist cough, but unable to produce sputum. On oxygen at 3 L/min via NC. Respirations even and unlabored. HRR. Telemetry in place: normal sinus. Capillary refill less than 3 seconds. Non-tenting skin turgor. BSAx4. Abdomen soft and non-tender. 1+ edema BLE. Compression stockings in place. Has sores on toes, small, chronic. Has ta boots in place. Voices no questions, needs, or concerns at this time. Resting in bed with call light within reach.
[2020-09-11 20:47] VITALS: BP 127/49; PULSE 85; TEMP 97.3
[2020-09-12 00:03] VITALS: BP 117/54; PULSE 76; TEMP 98.4
[2020-09-12 04:33] VITALS: BP 127/53; PULSE 85; TEMP 98.6
--- NOTE | 2020-09-12 05:32 | NUR ---
Patient has been resting in bed with call light within reach. Continues on antibiotics per orders. Denies having pain and discomfort. Seems to be resting more tonight compared to last night. Continues on oxygen at 3 L/min via NC. Repositioned in bed. Voices no questions, needs, or concerns at this time. Resting in bed with call light within reach.
[2020-09-12 06:28] LABS: CALCIUM 8.9 mg/dL (8.4-10.2); CREATININE, serum 0.72 (0.66-1.25); POTASSIUM 3.9 mmol/L (3.4-5.0)
[2020-09-12 06:52] LABS: BASO # 0.1 (0.0-0.2); BASO % 0.6 % (0.0-2.0); EOS # 0.2 (0.0-0.7); EOS % 1.8 % (0-4.0); GRAN # 8.4 (1.4-6.5); GRAN % 77.5 % (42.2-75.2); HEMATOCRIT 37.6 % (42.0-52.0); HEMOGLOBIN 12.1 g/dl (13.5-18.0); LYMPH # 1.2 (1.2-3.4); LYMPH % 11.3 % (20.0-51.0); MEAN CELL VOLUME 91 fl (80.0-100.0); MEAN CORPUSCULAR HEMOGLOBIN 29 pg (27.0-31.0); MEAN CORPUSCULAR HGB CONC 32 g/dl (33.0-37.0); MEAN PLATELET VOLUME 9.5 fl (7.4-10.4); MONO # 0.9 (0.1-0.6); MONO % 7.8 % (1.7-9.3); PLATELET COUNT 209 K/mm3 (130-400); RED BLOOD COUNT 4.13 M/mm3 (4.20-5.60); REDCELL DISTRIBUTION WIDTH-CV 13.9 % (11.5-14.5)
[2020-09-12] MEDS ORDERED: AMOXICILLIN 8751 TAB PO (08:55)
[2020-09-12] MEDS ORDERED: OXYGEN NASAL.CANN (08:58)
--- NOTE | 2020-09-12 09:20 | NUR ---
Initial visit; Patient frustrated, Plastic Extrusion Operator calmed him by listening and assuring him the Physician was 'on rounds' and would see him as soon as he could. Patient and his thanked Plastic Extrusion Operator for stopping.
--- NOTE | 2020-09-12 10:06 | NUR ---
PT RESTING IN BED ON 3 LPM NC. O2 TURNED OFF. PT UNABLE TO WALK. SPO2 CHECKED AFTER SEVERAL MINUTES ON ROOM AIR 86% O2 BACK ON @ 3 LPM NC.
[2020-09-12 10:25] VITALS: BP 131/63; PULSE 87; TEMP 98.7
--- NOTE | 2020-09-12 13:59 | NUR ---
Primary nurse was assisted with [phone] patient care by [employer] student Valerie Pablo and [employer] instructor Jennifer Belcher RN-.
--- NOTE | 2020-09-12 14:30 | NUR ---
Discharge paperwork and instructions reviewed with patient and his . All questions answered at this time. IV dc'd by student. Pt wheeled out of facility at this time.
== END 2020-09-12 14:30 | disposition home or self-care (01) | DRG 871 ==
LOC: COL.ER 12:00 → MEDICAL 14:17
PROVIDERS: Family Medicine; Physician Assistant; ADMIT Hospitalist
DX: A41.9 Sepsis, unspecified organism (principal); J18.9 Pneumonia, unspecified organism; J96.01 Acute respiratory failure with hypoxia; G82.50 Quadriplegia, unspecified; K59.2 Neurogenic bowel, not elsewhere classified; J43.9 Emphysema, unspecified; Z20.822 Contact with and (suspected) exposure to COVID-19; J84.10 Pulmonary fibrosis, unspecified; E78.5 Hyperlipidemia, unspecified; G47.33 Obstructive sleep apnea (adult) (pediatric); N31.9 Neuromuscular dysfunction of bladder, unspecified; F32.9 Major depressive disorder, single episode, unspecified; G62.9 Polyneuropathy, unspecified; Z99.81 Dependence on supplemental oxygen; Z87.891 Personal history of nicotine dependence
CPT/HCPCS: 99223-AI; 99232-AI; 99239; J0696; J1650; J2543; J7030

== ENCOUNTER 2020-10-23 13:45 | Outpatient (RCR) | payer OTHER ==
[~2020-10-23 13:45] MED LIST changes: +MOBIC 7.5MG7.5 MG PO; +MUCUS RELIEF200 MG PO; -MULTIPLE VITAMI1 CAP PO; +MULTIPLE VITAMI1 TA5 PO; +OXYGEN NASAL.CANN; +RT ALBUTER2.5 MG/0.5 IH; +VITAMIN D31000 IU PO
== END 2020-10-26 | disposition home or self-care (01) ==
LOC: WSPT
DX: G82.50 Quadriplegia, unspecified (principal); T14.8XXA Other injury of unspecified body region, initial encounter

== ENCOUNTER 2021-01-20 13:30 | Outpatient (RCR) | payer OTHER ==
[2021-01-22] MEDS ORDERED: DOXYCYCLINE 10100 MG PO (15:55)
[2021-01-22] MEDS ORDERED: CEFTIN500 MG PO (15:55)
[2021-01-22] MEDS ORDERED: PREDNISONE10 MG PO (15:55)
== END 2021-01-28 ==
LOC: WSPT
DX: G82.50 Quadriplegia, unspecified (principal)

== ENCOUNTER 2021-01-22 12:27 | Emergency (ER) | payer MEDICARE, BC ==
[~2021-01-22] VITALS: Ht 182.9 cm; Wt 104.5 kg
[2021-01-22 12:30] VITALS: TEMP 98.4
[2021-01-22 13:12] LABS: BASO # 0.1 (0.0-0.2); BASO % 0.5 % (0.0-2.0); EOS # 0.1 (0.0-0.7); EOS % 0.8 % (0-4.0); GRAN # 11.7 (1.4-6.5); GRAN % 79.7 % (42.2-75.2); HEMOGLOBIN 13.8 g/dl (13.5-18.0); LYMPH # 1.7 (1.2-3.4); LYMPH % 11.7 % (20.0-51.0); MEAN CELL VOLUME 90 fl (80.0-100.0); MEAN CORPUSCULAR HEMOGLOBIN 29 pg (27.0-31.0); MEAN CORPUSCULAR HGB CONC 32 g/dl (33.0-37.0); MEAN PLATELET VOLUME 8.5 fl (7.4-10.4); MONO % 6.8 % (1.7-9.3); PLATELET COUNT 317 K/mm3 (130-400)
[2021-01-22 13:23] LABS: BILIRUBIN,TOTAL 0.8 mg/dL (0.0-1.0); CREATININE, serum 0.68 (0.66-1.25); POTASSIUM 4.2 mmol/L (3.4-5.0); TOTAL PROTEIN 7.7 gm/dL (6.4-8.2)
[2021-01-22] MEDS ORDERED: PREDNISONE10 MG PO (15:55)
[2021-01-22] MEDS ORDERED: CEFTIN500 MG PO (15:55)
[2021-01-22] MEDS ORDERED: DOXYCYCLINE 10100 MG PO (15:55)
[2021-01-22 17:20] VITALS: BP 127/78; PULSE 91
== END 2021-01-22 17:20 | disposition home or self-care (01) ==
LOC: COL.ER 12:27
PROVIDERS: Family Medicine
DX: J18.9 Pneumonia, unspecified organism (principal); J44.9 Chronic obstructive pulmonary disease, unspecified; F32.9 Major depressive disorder, single episode, unspecified; E78.5 Hyperlipidemia, unspecified; Z79.899 Other long term (current) drug therapy
CPT/HCPCS: J2930; Q9967

== ENCOUNTER 2021-02-20 13:12 | Outpatient (CLI) | payer MEDICARE, BC ==
[~2021-02-20] VITALS: Ht 182.9 cm; Wt 98.6 kg
[~2021-02-20 13:12] MED LIST changes: +CEFTIN500 MG PO
[2021-02-20 14:45] VITALS: BP 109/46; PULSE 62; TEMP 96.6
[2021-02-20] MEDS ORDERED: LINZESS290CAP PO (18:05)
[2021-02-20] MEDS ORDERED: ALLEGRA 180MG180 MG PO (18:06)
[2021-02-20] MEDS ORDERED: MUCINEX 60600 MG/TA1 PO (18:06)
[2021-02-20] MEDS ORDERED: DALIRESP500 MCG PO (18:07)
[2021-02-20] MEDS ORDERED: ASPIRIN E.C. 8181 MG PO (18:07)
[2021-02-20] MEDS ORDERED: VALIUM 5MG T5 MG/TAB PO (18:07)
[2021-02-20] MEDS ORDERED: PROBIOTIC BLEN1 EACH PO (18:08)
[2021-02-20] MEDS ORDERED: CRANBERRY500 M3 PO (18:08)
[2021-02-20] MEDS ORDERED: VITAMINC1000TA PO (18:09)
[2021-02-20] MEDS ORDERED: PRESERVISION1 SGL PO (18:09)
[2021-02-20] MEDS ORDERED: VITAMIN D31000 I1 PO (18:09)
== END 2021-02-20 16:00 | disposition home or self-care (01) ==
LOC: EUO 13:12
DX: N39.0 Urinary tract infection, site not specified (principal)
CPT/HCPCS: C1751; J1335

== ENCOUNTER 2021-04-30 14:15 | Outpatient (RCR) | payer MEDICARE, BC ==
[~2021-04-30 14:15] MED LIST changes: +ALLEGRA 180MG180 MG PO; +LINZESS290CAP PO; +PROBIOTIC BLEN1 EACH PO; +VITAMINC1000TA PO
== END 2021-05-03 | disposition home or self-care (01) ==
LOC: WSPT
DX: G82.50 Quadriplegia, unspecified (principal); S14.109A Unspecified injury at unspecified level of cervical spinal cord, initial encounter

== ENCOUNTER → 2021-05-27 | Outpatient (CLI) | payer MEDICARE ==
[~2021-05-27] MED LIST changes: +NEURONTIN300 MG/CAP PO; +WELLBUTRIN 100100 MG PO
== END ==
LOC: COL.RAD 13:00
DX: J43.2 Centrilobular emphysema (principal)

== ENCOUNTER 2021-06-15 09:56 | Outpatient (CLI) | payer MEDICARE, BC ==
[~2021-06-15] VITALS: Ht 182.9 cm; Wt 106.8 kg
[~2021-06-15 09:56] MED LIST changes: -NEURONTIN300 MG/CAP PO; -WELLBUTRIN 100100 MG PO
[2021-06-15 10:00] VITALS: BP 136/87; PULSE 54; TEMP 98.1
[2021-06-15] MEDS ORDERED: NEURONTIN300 MG/CAP PO (16:11)
[2021-06-15] MEDS ORDERED: WELLBUTRIN 100100 MG PO (16:11)
[2021-06-15] MEDS ORDERED: PROBIOTIC BLEN1 EACH PO (16:15)
[2021-06-15] MEDS ORDERED: VITAMIN D31000 IU PO (16:15)
[2021-06-15] MEDS ORDERED: PRESERVISION1 SGL PO (16:15)
== END 2021-06-15 13:11 ==
LOC: EUO 09:56
DX: Z45.9 Encounter for adjustment and management of unspecified implanted device (principal); N39.0 Urinary tract infection, site not specified
CPT/HCPCS: C1751; C1892; J1335

== ENCOUNTER 2021-07-03 13:30 | Outpatient (RCR) | payer OTHER, MEDICARE, BC ==
[~2021-07-03 13:30] MED LIST changes: +NEURONTIN300 MG/CAP PO; +WELLBUTRIN 100100 MG PO
[2021-07-14] MEDS ORDERED: MASON NATURAL2000 IU PO (14:10)
[2021-07-14] MEDS ORDERED: [UNRECOGNIZED DRUG - OTHER] PO (14:24)
== END 2021-07-17 | disposition home or self-care (01) ==
LOC: WSPT
DX: G82.50 Quadriplegia, unspecified (principal); S14.109A Unspecified injury at unspecified level of cervical spinal cord, initial encounter

== ENCOUNTER 2021-07-14 12:19 | Day surgery (SDC) | payer MEDICARE, BC ==
[~2021-07-14] VITALS: Ht 182.9 cm; Wt 106.8 kg
[~2021-07-14 12:19] MED LIST changes: -MASON NATURAL2000 IU PO; -[UNRECOGNIZED DRUG - OTHER] PO
[2021-07-14 13:43] VITALS: BP 132/60; PULSE 55; TEMP 97.9
--- NOTE | 2021-07-14 14:00 | NUR ---
Straight cath done per spouse with 700ml's pale yellow urine. Awaits bedside cystoscopy to be done.
[2021-07-14] MEDS ORDERED: MASON NATURAL2000 IU PO (14:10)
[2021-07-14] MEDS ORDERED: [UNRECOGNIZED DRUG - OTHER] PO (14:24)
--- NOTE | 2021-07-14 15:47 | NUR ---
Bedside cystoscopy completed and patient tolerated procedure well. Spouse in room and all questions answered by Dr. Beckford.
--- NOTE | 2021-07-14 16:40 | NUR ---
Patient transferred into wheelchair with four person assist and tolerated well. Given dismissal instructions and signed by spouse. Patient escorted to wheelchair thurmond by Thomas GONZALEZ.
== END 2021-07-14 16:40 | disposition home or self-care (01) ==
LOC: SDCO 12:19
DX: N39.0 Urinary tract infection, site not specified (principal); N31.9 Neuromuscular dysfunction of bladder, unspecified; J43.9 Emphysema, unspecified; G82.50 Quadriplegia, unspecified; S14.104S Unspecified injury at C4 level of cervical spinal cord, sequela; H35.30 Unspecified macular degeneration; W19.XXXS Unspecified fall, sequela; D49.0 Neoplasm of unspecified behavior of digestive system; D49.1 Neoplasm of unspecified behavior of respiratory system; M17.12 Unilateral primary osteoarthritis, left knee; Z89.029 Acquired absence of unspecified finger(s); Z79.899 Other long term (current) drug therapy; Z79.82 Long term (current) use of aspirin; Z87.891 Personal history of nicotine dependence; Z79.1 Long term (current) use of non-steroidal anti-inflammatories (NSAID); Z79.51 Long term (current) use of inhaled steroids

== ENCOUNTER → 2021-07-14 | Outpatient (CLI) | payer MEDICARE, BC ==
[~2021-07-14] MED LIST changes: +MASON NATURAL2000 IU PO; +[UNRECOGNIZED DRUG - OTHER] PO
== END ==
LOC: COL.RAD 12:00
DX: E04.1 Nontoxic single thyroid nodule (principal)

== ENCOUNTER → 2021-09-14 | Outpatient (RCR) | payer OTHER, MEDICARE, BC ==
[~2021-09-14] MED LIST changes: +MASON NATURAL2000 IU PO; +[UNRECOGNIZED DRUG - OTHER] PO
== END | disposition home or self-care (01) ==
LOC: WSPT
DX: G82.50 Quadriplegia, unspecified (principal); T14.8XXA Other injury of unspecified body region, initial encounter

== ENCOUNTER → 2021-10-15 | Outpatient (RCR) | payer OTHER, MEDICARE, BC | LOC: WSPT | DX: G82.54 Quadriplegia, C5-C7 incomplete (principal) ==

== ENCOUNTER 2021-11-12 13:30 | Outpatient (RCR) | payer OTHER, MEDICARE, BC | END 2021-11-14 | disposition still patient (30) | LOC: WSPT | DX: S14.109A Unspecified injury at unspecified level of cervical spinal cord, initial encounter (principal); G82.50 Quadriplegia, unspecified ==

== ENCOUNTER → 2021-11-16 | Outpatient (CLI) | payer MEDICARE, BC | LOC: COL.PUL 08:56 | DX: J43.9 Emphysema, unspecified (principal); J98.4 Other disorders of lung ==

== ENCOUNTER 2021-12-10 14:15 | Outpatient (RCR) | payer OTHER, MEDICARE, BC | END 2021-12-15 | disposition home or self-care (01) | LOC: WSPT | DX: G82.50 Quadriplegia, unspecified (principal); T14.8XXA Other injury of unspecified body region, initial encounter ==

== ENCOUNTER → 2021-12-29 | Outpatient (CLI) | payer MEDICARE, BC | LOC: COL.PUL 12-28 11:30 | DX: J44.9 Chronic obstructive pulmonary disease, unspecified (principal) ==

== ENCOUNTER → 2022-01-14 | Outpatient (RCR) | payer OTHER, MEDICARE, BC | END | disposition home or self-care (01) | LOC: WSPT | DX: G82.50 Quadriplegia, unspecified (principal); S14.106A Unspecified injury at C6 level of cervical spinal cord, initial encounter ==

== ENCOUNTER 2022-02-11 14:15 | Outpatient (RCR) | payer OTHER, MEDICARE, BC | END 2022-02-14 | disposition home or self-care (01) | LOC: WSPT | DX: G82.50 Quadriplegia, unspecified (principal) ==

== ENCOUNTER 2022-03-11 15:00 | Outpatient (RCR) | payer OTHER, MEDICARE, BC | END 2022-03-17 | disposition home or self-care (01) | LOC: WSPT | DX: G82.50 Quadriplegia, unspecified (principal) ==

== ENCOUNTER 2022-04-28 15:28 | Inpatient (IN) | payer OTHER, MEDICARE, BC ==
[~2022-04-28] VITALS: Ht 182.9 cm; Wt 105.2 kg
[2022-04-28 16:26] LABS: HEMATOCRIT 46.7 % (42.0-52.0); HEMOGLOBIN 15.2 g/dl (13.5-18.0); MEAN CELL VOLUME 90 fl (80.0-100.0); MEAN CORPUSCULAR HEMOGLOBIN 29 pg (27-31); MEAN CORPUSCULAR HGB CONC 33 g/dl (33.0-37.0); MEAN PLATELET VOLUME 9.6 fl (7.4-10.4); PLATELET COUNT 267 K/mm3 (130-400)
[2022-04-28 16:30] LABS: ALBUMIN 3.8 gm/dL (3.4-4.8); BILIRUBIN,TOTAL 0.9 mg/dL (0.2-1.2); CALCIUM 9.6 mg/dL (8.4-10.2); CREATININE, serum 0.83 mg/dL (0.72-1.25); POTASSIUM 4.5 mmol/L (3.5-4.5); TOTAL PROTEIN 7.8 gm/dL (6.2-8.1)
[2022-04-28 16:36] LABS: TROPONIN-I 0.013 ng/mL (0.00-0.033)
[2022-04-28 17:29] LABS: COLLECTION METHOD CLEAN CATCH
[2022-04-28 17:32] LABS: BAND 2 % (0-10); BASOPHIL 3 % (0-2); LYMPHOCYTE 6 % (20.0-51.0); METAMYELOCYTE 2 % (0-0); NEUTROPHILS 82 % (42.0-75.2)
[2022-04-28 17:33] LABS: HYPOCHROMIA 1+; PLATELET ESTIMATE NORMAL (NORMAL)
[2022-04-28 17:35] LABS: PH 5.5 (5.0-8.5); URINE APPEARANCE Hazy (CLEAR/HAZY); URINE COLOR Yellow (YELLOW); URINE PROTEIN(semi-quant) 1+ (NEGATIVE)
[2022-04-28 17:36] LABS: SQUAMOUS EPITHELIAL 0-2 /hpf (0-10); URINE BACTERIA Rare /hpf (NONE SEEN); URINE BLOOD 3+ (NEGATIVE); URINE GLUCOSE Negative (NEGATIVE); URINE KETONE 1+ (NEGATIVE); URINE NITRATE Negative (NEGATIVE); URINE UROBILINOGEN 0.2 E.U/dL (0.2-1.0)
[2022-04-28 21:39] VITALS: BP 105/51; PULSE 112; TEMP 98.9
--- NOTE | 2022-04-28 23:00 | NUR ---
PT ARRIVED TO THE MEDICAL FLOOR AROUND 2120HRS TO [id number], ACCOMPANIED BY HIS . PT A&O X 4; VSS WITH HR A BIT TACHY; O2 AT 2L VIA NC. PT DENIES GENERAL PAIN, CHEST PAIN, SOB, N,V,D OR DIZZINESS. PT WAS A BIT TACHY AT 112BPM. ADMISSIONS ASSESSMENT AND MED REC COMPLETE. PT AND ORIENTED TO ROOM AND HOSPITAL POLICY. POC DISCUSSED WITH PT AND . BOTH VERBALIZED UNDERSTANDING. ALL QUESTIONS AND CONCERNS ADDRESSED. PT EXPRESSED NO ADDITIONAL NEED AT THIS TIME. CALL LIGHT(TAP PAD) WITHIN REACH.
[2022-04-29] VITALS (12 sets, daily range): BP systolic 72–123; BP diastolic 29–80; PULSE 73–106; TEMP 97.7–101.1
--- NOTE | 2022-04-29 01:23 | NUR ---
CALL FROM PRIMARY RN ILIR WHO STATES SHE WAS CALLED BY THE PCT FOR A BLOOD PRESSURE OF 66/40, PCT DID A RECHECK IMMEDIATELY WHICH PROVIDED A 76/32. THIS RN DID A MANUAL BP AND IT WAS 72/38. PT IS VERY DROWSY, WAKES, BUT FALLS RIGHT BACK TO SLEEP. THE PATIENT IS CURRENTLY SLEEPING. CONTACTED KRISTIAN SOTO FOR HYPOTENSION, SHE ORDERED A 500ML BOLUS WIDE OPEN. WILL RECHECK PRESSURE AFTER THE 500ML BOLUS. WILL CONTINUE TO MONITOR.
--- NOTE | 2022-04-29 05:00 | NUR ---
PT GIVEN 500ML BOLUS BY CHARGE NURSE. B/P IMPROVED SLIGHTY TO 81/42. HOSPITALIST IMFORMED. 250ML ORDERED AND GIVEN. B/P IMPROVED MORE TO 95/53. ORDER GIVEN TO INCREASED NS TO 125ML/HR. B/P UP TO 112/80 NOW. WILL CONTINUE TO MONITOR. TAP PAD CALL LIGHT WITHIN REACH.
--- NOTE | 2022-04-29 08:00 | NUR ---
Patient laying in bed, drowsy. A&Ox4. VSS 3L NC O2, no reported SOB. IV CDI. Air mattress and bilateral boots in place. Rucker intact. Patient refusing to be turned and complaints of wanting to sleep and many people coming in to his room. Nurse informed patient that doctors will round, nursing staff and therapy will be coming into the room and that we will try and cluster care to give him time to rest. Patient verbalized an understanding. Touch call light within reach
--- NOTE | 2022-04-29 11:20 | NUR ---
This morning patient stated he had a productive cough, when asked what his sputum looked like patient stated "I don't know, I've never seen it." When giving this mornings suppository. Patient's asked that I return to give after breakfast. When this nurse returned to give suppository after breakfast, patient was sleeping and stated she did not want the suppository given at this time. Primary nurse notified.
--- NOTE | 2022-04-29 13:18 | NUR ---
This nurse went into patient room to administer suppository. Patient refused at this time. Primary nurse notified.
--- NOTE | 2022-04-29 13:51 | NUR ---
Primary nurse was assisted with [phone] patient care by [employer] student Tammi Iyer and [employer] instructor Jennifer CHEEK RN.
--- NOTE | 2022-04-29 15:20 | NUR ---
Coding Coordinator met with patient to discuss discharge planning. Patient is sleeping so , Diana (ph#[phone]) completed intake on his behalf. Patient lives in [place] with his and sees Dr. Stanley Henderson for primary care. Patient obtains medications from [facility] with no difficulties. Patient has a laya lift, ramps, shower chair, and a power wheelchair at home. Patient requires the laya lift for transfers and needs total assistance with ADLS which his provides. Patient also receives [facility] services [facility] Patient's reports he has DPOA-HC completed. Plan is for patient to return home at time of discharge. Discharge Plan: Home with continued services
[2022-04-29 16:48] LABS: BASO # 0.1 K/mm3 (0.0-0.2); BASO % 0.4 % (0.0-2.0); EOS % 0.2 % (0.0-4.0); GRAN # 16.8 K/mm3 (1.4-6.5); GRAN % 87.2 % (42.2-75.2); LYMPH # 1.3 K/mm3 (1.2-3.4); LYMPH % 6.5 % (20.0-51.0); MEAN CELL VOLUME 89 fl (80.0-100.0); MEAN CORPUSCULAR HGB CONC 33 g/dl (33.0-37.0); MEAN PLATELET VOLUME 9.1 fl (7.4-10.4); MONO % 5.2 % (1.7-9.3); PLATELET COUNT 229 K/mm3 (130-400); RED BLOOD COUNT 3.97 M/mm3 (4.20-5.60); REDCELL DISTRIBUTION WIDTH-CV 14.3 % (11.5-14.5)
[2022-04-29 16:49] LABS: HEMATOCRIT 35.3 % (42.0-52.0); MEAN CORPUSCULAR HEMOGLOBIN 29 pg (27-31)
[2022-04-29 16:54] LABS: HEMOGLOBIN 11.6 g/dl (13.5-18.0)
[2022-04-29 17:00] LABS: CALCIUM 8.4 mg/dL (8.4-10.2); CREATININE, serum 0.8 mg/dL (0.72-1.25); POTASSIUM 3.6 mmol/L (3.5-4.5)
[2022-04-30 04:13] VITALS: BP 108/46; PULSE 81; TEMP 98.9
--- NOTE | 2022-04-30 05:00 | NUR ---
ASSESSMENT COMPLETE FOR TILLER MAN. PT SLEEPING IN BED. PT AND FAMILY REQUESTED THAT MEDS BE GIVEN LATER, SO THAT PT COULD SLEEP. PT HAVE A FEVER TONIGHT. PT GIVEN TYLENOL AND MOTRIN FOR FEVER. FEVER BROKE. PT DENIED GENERAL PAIN, CHEST PAIN, SOB, N,V,D OR DIZZINESS. WILL CONTINUE TO KEEP AN EYE ON PT TO ENSURE HIS NEEDS ARE MEET. PT EXPRESSED NO ADDITIONAL NEEDS AT THIS TIME. TAP PAD CALL LIGHT WITHIN REACH.
[2022-04-30 06:55] LABS: BASO # 0.1 K/mm3 (0.0-0.2); BASO % 0.7 % (0.0-2.0); EOS # 0.1 K/mm3 (0.0-0.7); EOS % 0.7 % (0.0-4.0); GRAN # 10.9 K/mm3 (1.4-6.5); GRAN % 79.3 % (42.2-75.2); HEMOGLOBIN 11.1 g/dl (13.5-18.0); LYMPH # 1.5 K/mm3 (1.2-3.4); LYMPH % 10.9 % (20.0-51.0); MEAN CELL VOLUME 89 fl (80.0-100.0); MEAN CORPUSCULAR HEMOGLOBIN 29 pg (27-31); MEAN CORPUSCULAR HGB CONC 33 g/dl (33.0-37.0); MEAN PLATELET VOLUME 9.4 fl (7.4-10.4); MONO # 1.1 K/mm3 (0.1-0.6); MONO % 7.9 % (1.7-9.3); PLATELET COUNT 213 K/mm3 (130-400); RED BLOOD COUNT 3.78 M/mm3 (4.20-5.60); REDCELL DISTRIBUTION WIDTH-CV 14.5 % (11.5-14.5)
[2022-04-30 07:00] LABS: HEMATOCRIT 33.8 % (42.0-52.0)
[2022-04-30 07:13] LABS: ALBUMIN 2.5 gm/dL (3.4-4.8); CALCIUM 7.9 mg/dL (8.4-10.2); CREATININE, serum 0.75 mg/dL (0.72-1.25); MAGNESIUM 1.9 mg/dL (1.6-2.6); PHOSPHOROUS 2.9 mg/dL (2.3-4.7); POTASSIUM 3.5 mmol/L (3.5-4.5)
[2022-04-30 07:44] VITALS: BP 121/54; PULSE 83; TEMP 98.4
--- NOTE | 2022-04-30 10:13 | NUR ---
Several visit attempts; Paperboard Boxes Estimator left card for patient offering God's blessings and information regarding the availability of Spiritual Care at our hospital.
--- NOTE | 2022-04-30 11:20 | NUR ---
CALLED RT FOR EKG. PATIENT WENT INTO AFIB WHEN BEING TURNED TO INSERT A SUPPOSITORY AND HAVE BM. DR. ISIDRA CASEY MD ORDERED.
[2022-04-30 11:49] VITALS: BP 127/59; PULSE 90; TEMP 97.8
--- NOTE | 2022-04-30 13:47 | NUR ---
Primary nurse was assisted with [phone] patient care by [employer] student Tammi Iyer and [employer] instructor Jennifer CHEEKRN.
--- NOTE | 2022-04-30 14:44 | NUR ---
Hat Block Bench Hand attended clinical rounds with the team and patient may discharge home. Patient may need home oxygen and patient's , Diana advised he is established with [facility], but may need new tanks. ZOYA contacted [facility] and confirmed he has services established. ZOYA also contacted [facility] and faxed updates. Discharge Plan: Home with and Home Health
[2022-04-30 16:00] VITALS: BP 143/60; PULSE 101; TEMP 101.5
--- NOTE | 2022-04-30 17:48 | NUR ---
PATIENT WAS STABLE THROUGHOUT THE DAY. DID HAVE TEMP ELEVATION THIS AFTERNOON OF 101.3. GAVE 650MG TYLENOL. CHEST X-RAY SHOWED NO CHANGES/STABLE. NO ISSUES WITH ARVIZU CATH. RECEIVED SUPPOSITIORY THIS AM. SMALL BM
[2022-04-30 19:42] VITALS: BP 136/53; PULSE 93; TEMP 98.8
[2022-05-01 00:45] VITALS: BP 129/57; PULSE 93; TEMP 98.9
[2022-05-01 04:40] VITALS: BP 131/54; PULSE 81; TEMP 99
--- NOTE | 2022-05-01 05:00 | NUR ---
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 PT RESTING IN BED WATCHING THE NEWS. PT DENIED PAIN, PALPITATIONS, SOB, N,V,D OR DIZZINESS. DURING MID-NIGHT VITALS, PT'S O2 SATS WERE IN THE MID 80'S ON PT'S HOME CIPAP. RT AND HOSPITALIST CALLED. AFTER TRYING EVERYTHING TO GET PT'S O2 SATS OUT OF THE 8O'S ON HIS CIPAP, CIPAP REMOVED AND PT PLACED ON OXYMASK. PT'S O2 SATS UP TO 99%. WILL CONTINUE TO MONITOR PT CLOSLY. PT EXPRESSED NO ADDITIONAL NEEDS AT THIS TIME. TAP PAD CALL LIGHT WITHIN REACH.
[2022-05-01 06:50] LABS: BASO # 0.1 K/mm3 (0.0-0.2); BASO % 0.7 % (0.0-2.0); EOS # 0.2 K/mm3 (0.0-0.7); EOS % 1.5 % (0.0-4.0); GRAN # 8.3 K/mm3 (1.4-6.5); GRAN % 77.2 % (42.2-75.2); HEMOGLOBIN 11.1 g/dl (13.5-18.0); LYMPH # 1.4 K/mm3 (1.2-3.4); MEAN CELL VOLUME 88 fl (80.0-100.0); MEAN CORPUSCULAR HEMOGLOBIN 29 pg (27-31); MEAN CORPUSCULAR HGB CONC 33 g/dl (33.0-37.0); MEAN PLATELET VOLUME 9.2 fl (7.4-10.4); MONO # 0.8 K/mm3 (0.1-0.6); MONO % 7.2 % (1.7-9.3); PLATELET COUNT 225 K/mm3 (130-400); RED BLOOD COUNT 3.81 M/mm3 (4.20-5.60); REDCELL DISTRIBUTION WIDTH-CV 14.1 % (11.5-14.5)
[2022-05-01 06:58] LABS: HEMATOCRIT 33.6 % (42.0-52.0)
[2022-05-01 07:11] LABS: ALBUMIN 2.3 gm/dL (3.4-4.8); CALCIUM 8.3 mg/dL (8.4-10.2); CREATININE, serum 0.68 mg/dL (0.72-1.25); MAGNESIUM 1.8 mg/dL (1.6-2.6); POTASSIUM 3.6 mmol/L (3.5-4.5)
[2022-05-01 07:59] VITALS: BP 129/59; PULSE 82; TEMP 98.4
--- NOTE | 2022-05-01 11:11 | NUR ---
Credit Administration Officer met with patient's and confirmed she has portable oxygen available if patient were to discharge today.
[2022-05-01 11:47] VITALS: BP 129/58; PULSE 78; TEMP 98.7
[2022-05-01 15:25] VITALS: BP 124/60; PULSE 89; TEMP 98.4
--- NOTE | 2022-05-01 17:04 | NUR ---
PATIENT WAS IN GOOD SPIRITS TODAY. DR. MINER AND DR. MILTON WANT THE PATIENT TO STAY LONGER BECAUSE SPUTUM CAME BACK POSITIVE WITH GRAM NEG. BACILLI. ZOSYN WAS DC AND MEREPENEM WAS ADDED. NO LOW GRADE TEMPS THIS SHIFT. 22G RFA IV WAS DISCONTINUED DUE TO PHLEBITIS.
--- NOTE | 2022-05-01 18:10 | NUR ---
PATIENT REQUESTED BREATHING TREATMENT. NOTIFIED RT AT 1805.
[2022-05-01 20:00] VITALS: BP 136/55; PULSE 98; TEMP 100.9
--- NOTE | 2022-05-01 21:59 | NUR ---
Patient assessed around 1939. Denies pain and discomfort. Reports SOB, but feels as if it is getting better. On oxygen at 3 L/min via NC. Indwelling jamil catheter patent, draining clear yellow urine via dependent drainage. Patient seems to be upset tonight. When asked if he was ready to take his medications he stated, "I should have already had them all by now." Explained which medications were still scheduled at HS, and stated he would take them. When giving medications, patient again upset, stating, "I usually space all of theses out, but you dont do that here." Offered to give a few at a time and come back later with more, but declined and did take all of his medications. Repositioned in bed. Voices no questions, needs, or concerns at this time. In bed with call light within reach.
[2022-05-02 00:15] VITALS: BP 139/64; PULSE 94; TEMP 99.9
[2022-05-02 03:39] LABS: GASTROCCULT POSITIVE
[2022-05-02 03:40] LABS: pH GASTRIC CONTENTS 3
[2022-05-02 03:53] VITALS: BP 135/88; PULSE 94; TEMP 98.1
--- NOTE | 2022-05-02 05:59 | NUR ---
Patient had small amount of emesis, blood tinged. Spoke with PA, ran gastroccult, which came back positive. PA updated at 0348 of results. No new orders at this time, will continue to monitor. IV site to right AC infiltrated. Takent out and started new IV to right forearm. Patient has been having increased confusion during the night, redirects for short period of time. Continues on oxygen at at 3 L/min via NC. In bed with call light within reach. High fall risk precautions in place.
[2022-05-02 07:12] LABS: BASO # 0.1 K/mm3 (0.0-0.2); BASO % 0.7 % (0.0-2.0); EOS # 0.1 K/mm3 (0.0-0.7); EOS % 0.7 % (0.0-4.0); GRAN # 8.1 K/mm3 (1.4-6.5); GRAN % 81.4 % (42.2-75.2); HEMOGLOBIN 12.1 g/dl (13.5-18.0); LYMPH # 0.9 K/mm3 (1.2-3.4); LYMPH % 8.8 % (20.0-51.0); MEAN CELL VOLUME 88 fl (80.0-100.0); MEAN CORPUSCULAR HEMOGLOBIN 29 pg (27-31); MEAN CORPUSCULAR HGB CONC 33 g/dl (33.0-37.0); MEAN PLATELET VOLUME 9.3 fl (7.4-10.4); MONO # 0.8 K/mm3 (0.1-0.6); PLATELET COUNT 236 K/mm3 (130-400); RED BLOOD COUNT 4.17 M/mm3 (4.20-5.60); REDCELL DISTRIBUTION WIDTH-CV 13.8 % (11.5-14.5)
--- NOTE | 2022-05-02 07:14 | NUR ---
RECEIVED SHIFT REPORT FROM LISA SHORT. PATIENT IS STABLE, ALERT AND ORIENTED. PATIENT HAS ONE IV SITE AND A ARVIZU CATHETER IN PLACE WHICH IS PATENT AND DRAINING TO GRAVITY. FLUIDS ARE GOING.
[2022-05-02 07:19] LABS: HEMATOCRIT 36.6 % (42.0-52.0)
[2022-05-02 07:21] LABS: ALBUMIN 2.6 gm/dL (3.4-4.8); CALCIUM 8.6 mg/dL (8.4-10.2); CREATININE, serum 0.68 mg/dL (0.72-1.25); MAGNESIUM 1.7 mg/dL (1.6-2.6); PHOSPHOROUS 2.5 mg/dL (2.3-4.7); POTASSIUM 3.7 mmol/L (3.5-4.5)
[2022-05-02 07:52] VITALS: BP 158/66; PULSE 92; TEMP 98
--- NOTE | 2022-05-02 10:00 | NUR ---
DR. MINER AT BEDSIDE. DISCUSSED PLAN OF CARE AND GAVE UPDATE. ORDERS RECEIVED AND QUESTIONS ANSWERED.
[2022-05-02 11:17] VITALS: BP 145/62; PULSE 89; TEMP 98.2
[2022-05-02 19:28] VITALS: BP 149/89; PULSE 88; TEMP 99.3
[2022-05-03] VITALS (14 sets, daily range): BP systolic 114–154; BP diastolic 51–95; PULSE 80–96; TEMP 98.3–99.2
--- NOTE | 2022-05-03 05:30 | NUR ---
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 PT IN BED DISTRESSED. PT COMPLAINED OF N,V AND ABD PAIN. PT VOMITED DARK BROWN FLUID MOST OF THE NIGHT. HOSPITALIST CALLED. PHENERGAN, ZOFRAN AND MORPHINE ORDERED AND GIVEN. THE PHENERGAN AND ZOFRAN DIDN'T HELP MUCH. THE MORPHINE WAS EFFECTIVE FOR A WHILE, BUT PT ONLY WANTED ONE DOSE. PT DENIED CHEST PAIN, PALPITATIONS, SOB, DIARRHEA OR DIZZINESS. WILL CONTINUE TO CLOSELY MONITOR PT. TAP PAD CALL LIGHT WITHIN REACH.
[2022-05-03 07:05] LABS: ALBUMIN 2.5 gm/dL (3.4-4.8); CALCIUM 7.9 mg/dL (8.4-10.2); CREATININE, serum 0.69 mg/dL (0.72-1.25); MAGNESIUM 1.9 mg/dL (1.6-2.6); PHOSPHOROUS 3.2 mg/dL (2.3-4.7); POTASSIUM 4.9 mmol/L (3.5-4.5)
--- NOTE | 2022-05-03 10:56 | NUR ---
Bicycle I Assembler attended clinical rounds with the team. Patient not ready for discharge today. SW contacted Claudette at [facility] to give updates. Discharge Plan: Home with and [facility]
--- NOTE | 2022-05-03 11:16 | NUR ---
SHIFT ASSESSMENT COMPLETED AND MORNING MEDICATIONS ADMINISTERED PER ORDER. PO MEDS ON HOLD D/T VOMITING AND UPCOMING EGD. SUPPOSITORY HELD PER PATIENT REQUEST. ALERT AND ORIENTED X4. DENIES PAIN. LUNGS DIMINISHED THROUGHOUT. ABD NON-TENDER. PATIENT WITH COFFEE GROUND EMESIS, MD AWARE, AWAITING EGD THIS AFTERNOON. NS AT 75 RUNNING, TOLERATING WELL. TURNED Q2 TO ASSIST WITH PRESSURE OFFLOADING. DENIES NEEDS AT THIS TIME. NPO FOR PROCEDURE, PATIENT AND AWARE OF NEED TO REMAIN NPO. AT BEDSIDE. SOFT TOUCH CALL LIGHT IN PLACE. REPORT GIVEN TO DENZEL ARAGON RN.
--- NOTE | 2022-05-03 14:35 | NUR ---
PATIENT RETURNED FROM EGD PROCEDURE AT 1430. DENIES PAIN. ALERT AND ORIENTED. POST OP VS WNL. IN BED AT THIS TIME WITH AT BEDSIDE.
[2022-05-03 14:58] LABS: BASO # 0.1 K/mm3 (0.0-0.2); BASO % 0.8 % (0.0-2.0); EOS # 0.1 K/mm3 (0.0-0.7); EOS % 0.9 % (0.0-4.0); GRAN # 7.7 K/mm3 (1.4-6.5); GRAN % 76.1 % (42.2-75.2); HEMOGLOBIN 10.5 g/dl (13.5-18.0); LYMPH # 1.3 K/mm3 (1.2-3.4); LYMPH % 12.3 % (20.0-51.0); MEAN CELL VOLUME 88 fl (80.0-100.0); MEAN CORPUSCULAR HEMOGLOBIN 29 pg (27-31); MEAN CORPUSCULAR HGB CONC 33 g/dl (33.0-37.0); MEAN PLATELET VOLUME 8.8 fl (7.4-10.4); MONO % 9.3 % (1.7-9.3); PLATELET COUNT 246 K/mm3 (130-400); RED BLOOD COUNT 3.61 M/mm3 (4.20-5.60); REDCELL DISTRIBUTION WIDTH-CV 13.6 % (11.5-14.5)
[2022-05-03 15:04] LABS: HEMATOCRIT 31.9 % (42.0-52.0)
--- NOTE | 2022-05-03 19:13 | NUR ---
PATIENT LAYING IN BED AT THIS TIME. REFUSED POSITION CHANGE AT 1800. DENIES PAIN AT THIS TIME. NS RUNNING AT 75, TOLERATING WELL. NO MORE EPISODES OF BLOODY EMESIS THIS EVENING. NO DIARRHEA. TOUCH CALL LIGHT IN PLACE, DENIES NEEDS AT THIS TIME.
[2022-05-04 00:32] VITALS: BP 114/51; PULSE 84; TEMP 98.2
[2022-05-04 04:53] VITALS: BP 125/49; PULSE 79; TEMP 98.2
--- NOTE | 2022-05-04 05:00 | NUR ---
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 PT RESTING IN BED WATCHING THE NEWS. PT STATED HE FEELS MUCH BETTER NIGHT THEN LAST NIGHT. PT HAD NO BOUTS VOMITING TONIGHT. PT DENIED GENERAL PAIN, CHEST PAIN, PALPITATIONS, SOB, N,V,D OR DIZZINESS. WILL CONTINUE TO MONITOR PT. TAP PAD CALL LIGHT WITHIN REACH.
[2022-05-04 06:29] LABS: BASO # 0.1 K/mm3 (0.0-0.2); BASO % 0.9 % (0.0-2.0); EOS # 0.3 K/mm3 (0.0-0.7); EOS % 3.7 % (0.0-4.0); GRAN # 6.8 K/mm3 (1.4-6.5); GRAN % 73.5 % (42.2-75.2); LYMPH # 1.3 K/mm3 (1.2-3.4); LYMPH % 14.1 % (20.0-51.0); MEAN CELL VOLUME 92 fl (80.0-100.0); MEAN CORPUSCULAR HGB CONC 32 g/dl (33.0-37.0); MEAN PLATELET VOLUME 9.2 fl (7.4-10.4); MONO # 0.7 K/mm3 (0.1-0.6); MONO % 7.5 % (1.7-9.3); PLATELET COUNT 250 K/mm3 (130-400); RED BLOOD COUNT 3.35 M/mm3 (4.20-5.60); REDCELL DISTRIBUTION WIDTH-CV 13.9 % (11.5-14.5)
[2022-05-04 06:30] LABS: HEMATOCRIT 30.8 % (42.0-52.0); HEMOGLOBIN 9.9 g/dl (13.5-18.0); MEAN CORPUSCULAR HEMOGLOBIN 30 pg (27-31)
[2022-05-04 06:44] LABS: ALBUMIN 2.2 gm/dL (3.4-4.8); CREATININE, serum 0.62 mg/dL (0.72-1.25); MAGNESIUM 1.7 mg/dL (1.6-2.6); POTASSIUM 3.5 mmol/L (3.5-4.5)
[2022-05-04 07:54] VITALS: BP 114/58; PULSE 74; TEMP 98.8
[2022-05-04] MEDS ORDERED: PROTONIX 40MG T40 MG PO (08:42)
[2022-05-04] MEDS ORDERED: CIPRO 500MG TA500 MG PO (10:37)
--- NOTE | 2022-05-04 11:27 | NUR ---
SHIFT ASSESSMENT COMPLETED AND MORNING MEDICATIONS ADMINSITERED PER ORDER. ALERT AND ORIENTED X4. LUNGS DIMINISHED THROUGHOUT. PATIENT WITH LIMITED MOBILITY R/T PARALYSIS. TURNED Q2. ON IV MAGNESIUM, TOLERATING WELL. IV TO RIGHT FOREARM INTACT, NO C/O PAIN, NO S/SX OF COMPLICATIONS TO SITE NOTED. NS RUNNING AT 75ML/HR. DENIES PAIN OR NEEDS AT THIS TIME. CALL LIGHT WITHIN REACH, BED IN LOWEST POSITION, AT BEDSIDE.
[2022-05-04 12:02] VITALS: BP 132/59; PULSE 76; TEMP 98.6
--- NOTE | 2022-05-04 12:42 | NUR ---
JOSE ZOCYN RUNNING OVER ONE HOUR D/T PATIENT DISCHARGING THIS AFTERNOON, PER PHARMACY, OKAY TO ADMIN OVER 30 MINS TO 1 HOUR.
--- NOTE | 2022-05-04 13:10 | NUR ---
Jewelry Designer contacted Claudette at [facility] and faxed discharge orders. Discharge Plan: Home with [facility] and
--- NOTE | 2022-05-04 15:33 | NUR ---
PATIENT DISCHARGED THIS AFTERNOON. IV TO RIGHT FOREARM REMOVED WITH CATHETER INTACT, GAUZE APPLIED, NO BLEEDING NOTED. DISCHARGE INSTRUCTIONS PROVIDED TO AND PATIENT. DISCHARGE MEDICATIONS AND APTS DISCUSSED WITH AND PATIENT. PATIENT'S STATES THEY WILL FOLLOW UP OUTPATIENT WITH DR. SANCHEZ R/T PATIENT'S ARVIZU CATHETER THAT HE HAD PLACED PRIOR TO THIS ADMISSION. DENIES ANY FURTHER QUESTIONS OR CONCERNS.
--- NOTE | 2022-05-04 15:40 | NUR ---
PATIENT DISCHARGED ON 1L NC, AT BEDSIDE WITH OXYGEN TANK, PATIENT ALREADY SET UP FOR HOME O2 PER AND PATIENT.
== END 2022-05-04 15:15 | disposition home health service (06) | DRG 871 ==
LOC: COL.ER 15:28 → MEDICAL 18:09
PROVIDERS: Emergency Medicine; Internal Medicine; Internal Medicine Gastroenterology; Physician Assistant; Student in an Organized Health Care Education/Training Program; ADMIT Family Medicine
PROC: 0DB38ZX Excision of Lower Esophagus, Via Natural or Artificial Opening Endoscopic, Diagnostic (ICD-10-PCS; principal; 2022-05-03 13:45)
DX: A41.9 Sepsis, unspecified organism (principal); G82.50 Quadriplegia, unspecified; J96.01 Acute respiratory failure with hypoxia; J15.1 Pneumonia due to Pseudomonas; K22.10 Ulcer of esophagus without bleeding; K92.0 Hematemesis; Z16.24 Resistance to multiple antibiotics; N39.0 Urinary tract infection, site not specified; H90.0 Conductive hearing loss, bilateral; H65.491 Other chronic nonsuppurative otitis media, right ear; I50.9 Heart failure, unspecified; N31.9 Neuromuscular dysfunction of bladder, unspecified; Z66 Do not resuscitate; B96.1 Klebsiella pneumoniae [K. pneumoniae] as the cause of diseases classified elsewhere; K21.00 Gastro-esophageal reflux disease with esophagitis, without bleeding; H35.30 Unspecified macular degeneration; G47.33 Obstructive sleep apnea (adult) (pediatric); Z20.822 Contact with and (suspected) exposure to COVID-19; J43.9 Emphysema, unspecified; J84.10 Pulmonary fibrosis, unspecified; E78.5 Hyperlipidemia, unspecified; F32.A Depression, unspecified; I95.9 Hypotension, unspecified; I45.81 Long QT syndrome; G62.9 Polyneuropathy, unspecified; Z79.82 Long term (current) use of aspirin; Z87.891 Personal history of nicotine dependence; Z23 Encounter for immunization
CPT/HCPCS: A9284; C9113; J0696; J1650; J2185; J2270; J2405; J2543; J2550; J2704; J3475; J7030; J7120; Q9967

== ENCOUNTER 2022-08-11 08:02 | Day surgery (SDC) | payer MEDICARE, BC ==
[~2022-08-11] VITALS: Ht 182.9 cm; Wt 104.3 kg
[~2022-08-11 08:02] MED LIST changes: +CALCIUM 600-D 61 TAB PO; +CIPRO 500MG TA500 MG PO; +D MANNOSE PO; +INVANZ INJ1 G/VIAL IV; +ULTRAM 50MG TAB50 MG PO; +ZANAFLEX CAPSULE6 MG PO
[2022-08-11 11:31] VITALS: BP 124/70; PULSE 120; TEMP 99.5
--- NOTE | 2022-08-11 11:31 | NUR ---
PT TRANSPORTED TO [facility]ERY UNIT VIA STRETCHER, REPORT RECEIVED FROM PEPE CROWELL AND LISA BA. PT ALERT, ARROUSES TO NAME, DENIES ANY PAIN AT THIS TIME. TACHYCARDIC AT THIS TIME, SPO2 90% ON RA, PLACED ON 2L OXYMASK; SPO2 93%. Peggy MELCHOR,I. SPOUSE AT BEDSIDE; PT COMFORTABLE AT THIS TIME. WILL CONTINUE TO MONTITOR.
[2022-08-11 11:46] VITALS: BP 132/84; PULSE 120
--- NOTE | 2022-08-11 11:46 | NUR ---
PT OFFERED LIQUIDS AND SNACK, REFUSED AT THIS TIME.
[2022-08-11 12:01] VITALS: BP 140/52; PULSE 124
--- NOTE | 2022-08-11 12:01 | NUR ---
PT DENIES PAIN AT THIS TIME; PRODUCTIVE COUGH, SPO2 DECREASES TO 88% ON RA; OXYMASK PLACED BACK ON 3L, SPO2 97%. PT TOLERATING PO LIQUIDS WELL. DISCHARGE INSTRUCTIONS GIVEN TO PT AND SPOUSE; QUESTIONS ANSWERED; UNDERSTANDING VERBALIZED.
[2022-08-11 12:16] VITALS: BP 135/74; PULSE 123
--- NOTE | 2022-08-11 12:16 | NUR ---
PT MAINTAINS SPO2 ON RA, ENCOURAGED TO COUGH AND DEEP BREATHE TODAY AND MOVE UPPER EXTREMITIES ABLE FOR CIRCULATION. ASSISTED PT WITH 2 RN HELP CHANGING AND MOVING TO POWER WC VIA LIFT; SAFETY MAINTAINED.
--- NOTE | 2022-08-11 12:38 | NUR ---
PT DISCHARGED OUT OF DEPT VIA POWER WC IN STABLE CONDITION WITH PRESENT.
[2022-08-13] MEDS ORDERED: LASIX 20MG TABL20 MG PO (15:03)
[2022-08-13] MEDS ORDERED: DOXYCYCLINE 10100 MG PO (15:07)
[2022-08-13] MEDS ORDERED: GENTAMICIN TOPI15 GM TP (15:07)
== END 2022-08-11 12:38 | disposition home or self-care (01) ==
LOC: SDCO 08:02
DX: C15.5 Malignant neoplasm of lower third of esophagus (principal); F17.210 Nicotine dependence, cigarettes, uncomplicated; G47.33 Obstructive sleep apnea (adult) (pediatric); Z99.81 Dependence on supplemental oxygen
CPT/HCPCS: C1788; J0690; J1644; J2704; J7120

== ENCOUNTER → 2022-08-25 | Outpatient (CLI) | payer MEDICARE, BC ==
[~2022-08-25] MED LIST changes: +GENTAMICIN TOPI15 GM TP; +LASIX 20MG TABL20 MG PO
[2022-08-25 17:55] LABS: BASO # 0.1 K/mm3 (0.0-0.2); BASO % 0.8 % (0.0-2.0); EOS # 0.3 K/mm3 (0.0-0.7); EOS % 2.1 % (0.0-4.0); GRAN # 9.5 K/mm3 (1.4-6.5); GRAN % 76.3 % (42.2-75.2); HEMOGLOBIN 11.2 g/dl (13.5-18.0); LYMPH % 15.8 % (20.0-51.0); MEAN CELL VOLUME 84 fl (80.0-100.0); MEAN CORPUSCULAR HEMOGLOBIN 26 pg (27-31); MEAN CORPUSCULAR HGB CONC 31 g/dl (33.0-37.0); MEAN PLATELET VOLUME 10.3 fl (7.4-10.4); MONO # 0.6 K/mm3 (0.1-0.6); MONO % 4.7 % (1.7-9.3); PLATELET COUNT 402 K/mm3 (130-400); RED BLOOD COUNT 4.33 M/mm3 (4.20-5.60)
[2022-08-25 17:57] LABS: HEMATOCRIT 36.4 % (42.0-52.0)
[2022-08-25 18:05] LABS: CALCIUM 9.3 mg/dL (8.4-10.2); CREATININE, serum 0.68 mg/dL (0.72-1.25); POTASSIUM 4.7 mmol/L (3.5-4.5)
== END ==
LOC: ZCOL.LAB 15:08
PROVIDERS: Internal Medicine
DX: B96.5 Pseudomonas (aeruginosa) (mallei) (pseudomallei) as the cause of diseases classified elsewhere (principal)

== ENCOUNTER → 2022-08-27 | Outpatient (CLI) | payer MEDICARE, BC ==
[2022-08-27 14:31] LABS: COLLECTION METHOD CLEAN CATCH
[2022-08-27 14:57] LABS: URINE APPEARANCE Clear (CLEAR/HAZY); URINE BLOOD Negative (NEGATIVE); URINE COLOR Yellow (YELLOW); URINE GLUCOSE Negative (NEGATIVE); URINE KETONE Negative (NEGATIVE); URINE NITRATE Negative (NEGATIVE); URINE PROTEIN(semi-quant) Negative (NEGATIVE); URINE UROBILINOGEN 0.2 E.U/dL (0.2-1.0)
[2022-08-27 15:03] LABS: SQUAMOUS EPITHELIAL None Seen /hpf (0-10); URINE BACTERIA Rare /hpf (NONE SEEN); URINE RBC 0-2 /hpf (0-2)
== END ==
LOC: ZCOL.LAB 14:19
PROVIDERS: Internal Medicine
DX: N31.9 Neuromuscular dysfunction of bladder, unspecified (principal); B96.5 Pseudomonas (aeruginosa) (mallei) (pseudomallei) as the cause of diseases classified elsewhere

== ENCOUNTER 2022-09-09 13:01 | Day surgery (SDC) | payer MEDICARE, BC ==
[~2022-09-09] VITALS: Ht 182.9 cm; Wt 99.1 kg
[2022-09-09 13:49] VITALS: BP 130/85; PULSE 86; TEMP 98.2
--- NOTE | 2022-09-09 13:56 | NUR ---
Test Eng, RN, confirmed with Anesthesia and pt/ to use R chest port; Port was accessed yesterday 09/08 by another facility, [facility], flushes well, connected to fluids.
[2022-09-09 14:25] VITALS: BP 129/60; PULSE 84; TEMP 97.2
[2022-09-09 14:40] VITALS: BP 130/75; PULSE 86
--- NOTE | 2022-09-09 15:00 | NUR ---
1425-PT TO BAY 4 PER PERSONAL WHEELCHAIR FROM PROCEDURE ROOM ACCOMPANIED BY HIS . DR AGUAYO SPOKE WITH PT AND HIS IN THE PROCEDURE ROOM OF FINDINGS FROM THE PROCEDURE. VS OBTAINED. PT DENIES ANY NEEDS AT THIS TIME. 1430-PT TOLERATING JUICE WITHOUT DIFFICULTY. PT DENIES ANYTHING TO EAT. 1445-DISCHARGE EDUCATION COMPLETED WITH PT AND HIS . VERBALIZED UNDERSTANDING OF HOME AND FOLLOW UP CARE. ALL QUESTIONS ANSWERED. DISCHARGE PAPERWORK GIVEN TO PT'S . 1448-Varsha GREEN RN AT BEDSIDE TO HEPARINIZE PT'S LINE ATTACHED TO [place]. 1450-PT DRESSED WITH ASSISTANCE OF HIS . 1500-PT OFF UNIT PER PERSONAL WHEELCHAIR. PT DISCHARGED TO HOME WITH PER PERSONAL VEHICLE.
== END 2022-09-09 15:00 | disposition home or self-care (01) ==
LOC: SDCO 13:01
DX: C15.5 Malignant neoplasm of lower third of esophagus (principal); K22.2 Esophageal obstruction; G47.33 Obstructive sleep apnea (adult) (pediatric); Z99.81 Dependence on supplemental oxygen
CPT/HCPCS: J1644; J2704; J7120

== ENCOUNTER → 2022-09-10 | Outpatient (CLI) | payer MEDICARE, BC | LOC: COL.PUL 14:58 | DX: C15.5 Malignant neoplasm of lower third of esophagus (principal); J44.9 Chronic obstructive pulmonary disease, unspecified ==

== ENCOUNTER → 2022-11-04 | Outpatient (REF) | payer MEDICARE, BC ==
[2022-11-04 17:18] LABS: COLLECTION METHOD IN
[2022-11-04 17:20] LABS: URINE APPEARANCE Clear (CLEAR/HAZY); URINE BLOOD Negative (NEGATIVE); URINE COLOR Yellow (YELLOW); URINE GLUCOSE Negative (NEGATIVE); URINE KETONE Negative (NEGATIVE); URINE NITRATE Negative (NEGATIVE); URINE PROTEIN(semi-quant) Negative (NEGATIVE); URINE UROBILINOGEN 0.2 E.U/dL (0.2-1.0)
[2022-11-04 17:33] LABS: URINE BACTERIA Rare /hpf (NONE SEEN)
[2022-11-04 17:34] LABS: MUCOUS Present (NOT PRESENT); URINE CALCIUM OXALATE CRYSTAL Present (NOT PRESENT)
== END ==
LOC: COL.LAB 16:04
PROVIDERS: Internal Medicine
DX: L89.612 Pressure ulcer of right heel, stage 2 (principal); L89.892 Pressure ulcer of other site, stage 2; N39.0 Urinary tract infection, site not specified